=== PATIENT | female | born 1940 | race Caucasian/White ===

== ENCOUNTER 2017-04-13 13:52 | Emergency (ER) | payer OTHER, MEDICARE ==
--- NOTE | 2017-04-13 14:19 | PDOC ---
History of Present Illness - General History Source: Patient Exam Limitations: No Limitations - History of Present Illness Initial Comments: 04/13/17 15:24 The patient is a 76 year old female with past medical history of Parkinsons Disease and chronic lower extremity edema who arrives to the ED s/p mechanical fall earlier today. As per patient, she was washing her floors when she twisted her body and fell onto her right arm. She denies any dizziness, chest pain, or lightheadedness preceding the incident. She denies hitting her head or any loss of consciousness. The patient currently complains of right shoulder pain that is 6/10 in severity, constant, and radiates to her right humerus with associated weakness. She reports pain upon movement of her right extremity. She denies any loss of sensation/numbness. She denies any recent illness, fever, chills, nausea, vomiting, diarrhea, cough, SOB, or urinary symptoms. <Sally Eagle - Last Filed: 04/13/17 15:24> <Anita Regan - Last Filed: 04/13/17 18:16> <Jose Puckett - Last Filed: 04/13/17 18:27> - General Chief Complaint: Pain Stated Complaint: RIGHT SHOULDER PAIN Time Seen by Provider: 04/13/17 14:16 Past History <Sally Eagle - Last Filed: 04/13/17 15:24> <Anita Regan - Last Filed: 04/13/17 18:16> <Jose Puckett - Last Filed: 04/13/17 18:27> - Past Medical History Allergies/Adverse Reactions: Allergies Allergy/AdvReac Type Severity Reaction Status Date / Time No Known Allergies Allergy Verified 04/13/17 13:53 Home Medications: Ambulatory Orders Aspirin [Aspir 81] 81 mg PO DAILY 12/09/12 Calcium Carbonate [Tums Ultra] 400 mg PO ASDIR 12/09/12 Cholecalciferol (Vitamin D3) [Vitamin D3] 1,000 unit PO 2 CAPS DAILY capsule Ropinirole HCl [Requip Xl] 6 mg PO DAILY tablet 07/09/15 [id number] [Stalevo 100 -] 1 each PO TID tablet 08/06/15 Furosemide [Lasix] 20 mg PO DAILY 04/13/17 Review of Systems - Review of Systems Able to Perform ROS?: Yes Comments:: 04/13/17 15:24 A complete review of 10 out of 10 review of systems is taken and is negative apart from what is previously mentioned below and in the HPI. All Other Systems: Reviewed and Negative <Sally Eagle - Last Filed: 04/13/17 15:24> *Physical Exam - Vital Signs Last Vital Signs Temp Pulse Resp BP Pulse Ox 97.3 F L 87 16 154/78 100 04/13/17 13:53 04/13/17 13:53 04/13/17 13:53 04/13/17 13:53 04/13/17 13:53 - Physical Exam Comments: 04/13/17 15:24 Vitals: Triage Vital signs reviewed General Appearance: no acute distress, well nourished well developed, Head: Atraumatic, normocephalic Neck: Supple;No Nuchal rigidity Cardiac: Regular rate and rhythm, no murmurs, no rubs, no gallops, Lungs: Clear to auscultation bilateral, good air movement bilaterally, Abdomen: Soft, nondistended, normal bowel sounds, nontender to palpation Extremities: Full range of motion to all extremities, no cyanosis, clubbing, or edema Skin: Warm and dry, no rashes or lesions, no petechiae Neuro: AOX3; Cranial Nerves 2-12 grossly intact, Strength intact to all extremities, Sensation intact to all extremities Psych: normal mood, normal affect <Sally Eagle - Last Filed: 04/13/17 15:24> - Vital Signs Last Vital Signs Temp Pulse Resp BP Pulse Ox 97.3 F L 87 16 154/78 100 04/13/17 13:53 04/13/17 13:53 04/13/17 13:53 04/13/17 13:53 04/13/17 13:53 <Anita Regan - Last Filed: 04/13/17 18:16> ED Treatment Course - Medications Given in the ED: ED Medications Discontinued Medications Generic Name Dose Route Start Last Admin Trade Name Freq PRN Reason Stop Dose Admin Ibuprofen 600 mg 04/13/17 14:51 04/13/17 15:06 Motrin - PO 04/13/17 14:52 600 mg ONCE ONE Administration <Sally Eagle - Last Filed: 04/13/17 15:24> - Medications Given in the ED: ED Medications Discontinued Medications Generic Name Dose Route Start Last Admin Trade Name Louie PRN Reason Stop Dose Admin Ibuprofen 600 mg 04/13/17 14:51 04/13/17 15:06 Motrin - PO 04/13/17 14:52 600 mg ONCE ONE Administration <Anita Regan - Last Filed: 04/13/17 18:16> Medical Decision Making - Medical Decision Making 04/13/17 18:16 Exam: Right shoulder X-Ray Right Shoulder 2 views S/p fall There is no radiographic evidence of fracture. No dislocation is seen. There is mild degenerative bony spurring along the greater tuberosity of the humeral head. Minimal degenerative hypertropic change is noted of the acromioclavical joint. Impression: No fracture is identified. Reported by: Turner Sommers MD Documentation prepared by Anita Regan, acting as nurses medical assistants phlebotomists for Jose Puckett MD. <Anita Regan - Last Filed: 04/13/17 18:16> - Medical Decision Making No fracture no dislocation noted on x-ray patient provided with orthopedic follow-up Findings, the need for follow-up and strict return instructions discussed with patient and family. <Jose Puckett - Last Filed: 04/13/17 18:27> *DC/Admit/Observation/Transfer - Attestations Scribe Attestion: 04/13/17 15:26 Documentation prepared by Sally Eagle, acting as nurses medical assistants phlebotomists for Jose Puckett MD. <Sally Eagle - Last Filed: 04/13/17 15:24> <Anita Regan - Last Filed: 04/13/17 18:16> - Discharge Dispostion Admit: No <Jose Puckett - Last Filed: 04/13/17 18:27> Diagnosis at time of Disposition: Shoulder sprain Qualifiers: Encounter type: initial encounter Shoulder sprain type: unspecified sprain Laterality: right Qualified Code(s): S43.401A - Unspecified sprain of right shoulder joint, initial encounter - Discharge Dispostion Condition at time of disposition: Stable - Referrals Referrals: Terrence Lauren MD [Staff Physician] - Lincoln You MD [Staff Physician] - - Patient Instructions Printed Discharge Instructions: How to Use a Sling, Shoulder Sprain Additional Instructions: Alternate Tylenol Motrin as directed on package as needed for pain. Ice shoulder 20 minutes on 20 minutes off. Okay to use a sling for comfort but you must removed the string 4-5 times a day and perform range of motion exercises as directed here in the emergency department. Follow-up this week with or Dr. Lauren orthopedics. Return to the emergency department for any severe worsening symptoms or for any concerns.
[2017-04-13 14:25] VITALS: BP 154/78; PULSE 87; TEMP 97.3; BMI 28.5
[2017-04-13] MEDS ORDERED: IBUPROFEN 600 MG TABLET (FP) PO ONE ×2 (14:51→15:02)
== END 2017-04-13 18:42 | disposition home or self-care (01) ==
LOC: FER 13:52
DX: S43.401A Unspecified sprain of right shoulder joint, initial encounter (principal); W01.0XXA Fall on same level from slipping, tripping and stumbling without subsequent striking against object, initial encounter; Y93.E5 Activity, floor mopping and cleaning; Y92.009 Unspecified place in unspecified non-institutional (private) residence as the place of occurrence of the external cause; G20 Parkinson's disease; R60.9 Edema, unspecified; Z79.82 Long term (current) use of aspirin
CPT/HCPCS: 71046-TC-FY; 73030-TC-RT-FY; 99282-25

== ENCOUNTER 2018-10-22 06:12 | Emergency (ER) | payer OTHER, MEDICARE ==
[2018-10-22 06:32] VITALS: BP 154/80; PULSE 86; TEMP 97.4; BMI 28.4
[2018-10-22] MEDS ORDERED: ACETAMINOPHEN 500 MG TABLET (FP) PO ONE (06:35)
[2018-10-22] MEDS ORDERED: ACETAMINOPHEN 500 MG TABLET (FP) ONE (06:36)
--- NOTE | 2018-10-22 06:37 | PDOC ---
History of Present Illness - General Chief Complaint: Pain, Acute Stated Complaint: RT FLANK PAIN - History of Present Illness Initial Comments: 10/22/18 07:09 non traumatic LBP Timing/Duration: 24 hours Severity: moderate Modifying Factors: improves with: immobilization, movement, rest Associated Symptoms: denies: fever/chills, nausea/vomiting, rash Past History - Past Medical History Allergies/Adverse Reactions: Allergies Allergy/AdvReac Type Severity Reaction Status Date / Time No Known Allergies Allergy Verified 04/13/17 13:53 Home Medications: Ambulatory Orders Aspirin [Aspir 81] 81 mg PO DAILY 12/09/12 Calcium Carbonate [Tums Ultra] 400 mg PO ASDIR 12/09/12 Cholecalciferol (Vitamin D3) [Vitamin D3] 1,000 unit PO 2 CAPS DAILY capsule Ropinirole HCl [Requip Xl] 6 mg PO DAILY tablet 07/09/15 [id number] [Stalevo 100 -] 1 each PO QID tablet 08/06/15 Furosemide [Lasix] 20 mg PO DAILY 04/13/17 Amantadine HCl [Amantadine] 100 mg PO DAILY 10/22/18 COPD: No Comment:: 10/22/18 07:10 parkinsons disease - Surgical History Abdominal Surgery: Yes - Suicide/Smoking/Psychosocial Hx Smoking History: Never smoked Hx Alcohol Use: No Drug/Substance Use Hx: No Substance Use Type: None Review of Systems - Review of Systems All Other Systems: Reviewed and Negative *Physical Exam - Physical Exam General Appearance: Yes: Nourished, Appropriately Dressed HEENT: positive: Normal Voice Neck: negative: Lymphadenopathy (R), Lymphadenopathy (L) Respiratory/Chest: positive: Lungs Clear Cardiovascular: positive: Regular Rhythm Gastrointestinal/Abdominal: positive: Normal Bowel Sounds. negative: Tender Musculoskeletal: positive: Normal Inspection, Decreased Range of Motion, Muscle Spasm Extremity: positive: Normal Capillary Refill Integumentary: positive: Normal Color Neurologic: positive: Other (stigmata of parkinsons disease) Medical Decision Making - Medical Decision Making 10/22/18 07:11 msk LBP analgesia *DC/Admit/Observation/Transfer Diagnosis at time of Disposition: Low back pain Qualifiers: Chronicity: acute Back pain laterality: right Sciatica presence: without sciatica Qualified Code(s): M54.5 - Low back pain - Discharge Dispostion Disposition: HOME Condition at time of disposition: Stable - Referrals Referrals: Vipul Dowd MD [Primary Care Provider] - - Patient Instructions Printed Discharge Instructions: DI for Low Back Pain - Post Discharge Activity
== END 2018-10-22 07:24 | disposition home or self-care (01) ==
LOC: FER 06:12
DX: M54.5 Low back pain (principal); G20 Parkinson's disease
CPT/HCPCS: 99281-25

== ENCOUNTER 2019-08-19 17:25 | Inpatient (IN) | payer OTHER, MEDICARE ==
--- NOTE | 2019-08-19 17:49 | PDOC ---
Documentation entered by Criss Charles SCRIBE, acting as scribe for Kimberly Stein MD. Kimberly Stein MD: This documentation has been prepared by the yueibeMelvin Lincy, SCRIBE, under my direction and personally reviewed by me in its entirety. I confirm that the documentation accurately reflects all work, treatment, procedures, and medical decision making performed by me. History of Present Illness - General Chief Complaint: Wound Stated Complaint: LEG REDNESS History Source: Patient Exam Limitations: No Limitations - History of Present Illness Initial Comments: 08/19/19 17:51 The patient is a 78-year-old female with a past medical history significant for parkinson's disease who presents to the emergency department with right leg redness and swelling. The patient reports chronic right leg wound s/p a fall in May around [facility], when a chair fell onto the leg injuring the right leg. The patient reports following up with Dr. Dowd and recent 10-day oral antibiotics use about a month ago. The patient presents today with worsening redness and swelling to the right leg, states the redness and swelling "wasn't this bad yesterday." Denies fever, chills, cough, shortness of breath, chest pain, abdominal pain, urinary complaints. Denies a history of DM. The patient reports having a lower extremity ultrasound on 07/28, which was negative for DVT. Allergies: NKA PCP: Dr. Dowd. Past History - Medical History Allergies/Adverse Reactions: Allergies Allergy/AdvReac Type Severity Reaction Status Date / Time No Known Allergies Allergy Verified 08/19/19 17:25 Home Medications: Ambulatory Orders Aspirin [Aspir 81] 81 mg PO DAILY 12/09/12 Calcium Carbonate [Tums Ultra] 400 mg PO HS 12/09/12 Ropinirole HCl [Requip Xl] 6 mg PO HS tablet 07/09/15 [id number] [Stalevo 100 -] 1 each PO QID tablet 08/06/15 Furosemide [Lasix] 20 mg PO DAILY 04/13/17 Amantadine HCl [Amantadine] 100 mg PO DAILY 10/22/18 COPD: No - Surgical History Abdominal Surgery: Yes - Psycho-Social/Smoking History Smoking History: Never smoked Review of Systems - Review of Systems Able to Perform ROS?: Yes Comments:: 08/19/19 17:55 GENERAL/CONSTITUTIONAL: No fever or chills. No weakness. HEAD, EYES, EARS, NOSE AND THROAT: No change in vision. No ear pain or discharge. No sore throat. CARDIOVASCULAR: No chest pain or shortness of breath. RESPIRATORY: No cough, wheezing, or hemoptysis. GASTROINTESTINAL: No nausea, vomiting, diarrhea or constipation. GENITOURINARY: No dysuria, frequency, or change in urination. MUSCULOSKELETAL: No joint or muscle swelling or pain. No neck or back pain. SKIN: +right leg redness and swelling. No rash NEUROLOGIC: No headache, vertigo, loss of consciousness, or change in strength/sensation. ENDOCRINE: No increased thirst. No abnormal weight change. Denies history of DM. HEMATOLOGIC/LYMPHATIC: No anemia, easy bleeding, or history of blood clots. ALLERGIC/IMMUNOLOGIC: No hives or skin allergy. *Physical Exam - Physical Exam 08/19/19 17:47 Awake alert no acute distress lungs are clear bilaterally heart is regular with any murmurs rubs or gallops abdomen is soft and nontender extremities are warm well perfused the right lower extremity is noted for severe edema and erythema from the foot to the level of the knee there is an anterior central li wound approximately 1 cm x 1 cm which is weeping serous fluid there is warmth edema is more noted compared to the left lower extremity neurologically patient is awake alert and oriented x3 Heart Score/ECG Review #1 General ECG Interpretation: Sinus Rhythm, Normal Rate (86), Normal Intervals, No acute ischemic changes ED Treatment Course - LABORATORY CBC & Chemistry Diagram: 08/19/19 17:49 08/19/19 17:49 Medical Decision Making - Medical Decision Making 08/19/19 17:46 78 yo F ho htn chronic leg wound since 05/2019 here with right leg swelling redness and draining from her wound. she was on abx for this recently. no f/ does have chills. no n/v no cough. no sob. has had us rlext neg for dvt. 07/29/19 plan labs ivf abx. due to recent abx use and rapidity of evolution of swelling and redness, will admit for iv abx. Discharge - Discharge Information Problems reviewed: Yes Clinical Impression/Diagnosis: Cellulitis, Leg wound, right Condition: Stable - Admission Yes - Follow up/Referral - Patient Discharge Instructions - Post Discharge Activity
[2019-08-19 18:20] LABS: LYMPH % 12.6 % (8-40); MCH 33.4 pg (25.7-33.7); MEAN CELL VOLUME 92.8 fl (80-96); MEAN PLT VOLUME 8.3 fl (7.5-11.1); MONO % 9.1 % (3.8-10.2); NEUT % 77.6 % (42.8-82.8); PLATELET COUNT 132 K/MM3 (134-434); RBC 3.37 M/mm3 (3.60-5.2); RDW 13.5 % (11.6-15.6); WHITE BLOOD COUNT 6.6 K/mm3 (4.0-10.8)
[2019-08-19 18:22] LABS: BASO % 0.4 % (0-2.0); EOS % 0.3 % (0-4.5); HEMATOCRIT 31.2 % (32.4-45.2); HEMOGLOBIN 11.3 GM/dl (10.7-15.3)
[2019-08-19] MEDS ORDERED: VANCOMYCIN 1 GM in D5W (PRE-DOCKED) 1,000 MG/250 ML IVPB ONE (18:24)
[2019-08-19] MEDS ORDERED: PIPERACILLIN/TAZOB 3.375 GM 3.375 GM in DEXTROSE 5%-WATER - 50 ML IVPB ONE (18:24)
[2019-08-19] MEDS ORDERED: VANCOMYCIN 1,000 MG VIAL (RESTRICTED TO ID ONLY) ONE (18:25)
[2019-08-19] MEDS ORDERED: PIPERACILLIN/TAZOBACTAM 3.375 GM VIAL IVPB ONE (18:26)
[2019-08-19 18:28] LABS: ALBUMIN 3.6 g/dl (3.4-5.0); CALCIUM 8.5 mg/dl (8.5-10); CREATININE 0.9 mg/dl (0.55-1.3); POTASSIUM 3.5 mmol/L (3.5-5.1); TOT PROT 5.7 g/dl (6.4-8.2)
[2019-08-19] MEDS ORDERED: POTASSIUM CHLORIDE ORAL LIQUID 20 MEQ/15 ML PO ONE (20:15)
[2019-08-19] MEDS: HEPARIN NA (PORCINE) 5,000 UNITS/ML 1ML VIAL SQ SCH (21:48)
[2019-08-19] MEDS ORDERED: ROPINIROLE HCL 6 MG PO SCH (22:00)
--- NOTE | 2019-08-19 23:58 | HP ---
CHIEF COMPLAINT: leg redness/swelling PCP: Fader HISTORY OF PRESENT ILLNESS: This is a 78 year old female with PMH Parkinson's disease who presented to the ED with erythema, warmth and swelling to RLE x 1 day. Pt hit lower leg and sustained a cut mid May which had poor healing and ultimately required a cour se of Augmentin x 10 days in June. The wound had healed but her family noted that the leg was red this morning with and open draining area. Pt denies any other issues presently. She reports chronic edema to her right leg. She had an ultrasound on 07/28 which was negative for DVT. 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 T10-L5 spine surgery, fusion tonsillectomy appendectomy left tennis elbow surgery wrist ganglion cyst removal Social History: Smoking: pt denies Alcohol: pt denies Drugs: pt denies Allergies No Known Allergies Allergy (Verified 08/19/19 17:25) HOME MEDICATIONS: Medication Instructions Recorded Aspirin [Aspir 81] 81 mg PO DAILY 12/09/12 Calcium Carbonate [Tums Ultra] 400 mg PO HS 12/09/12 Ropinirole HCl [Requip Xl] 6 mg PO HS tablet 07/09/15 [id number] 1 each PO QID tablet 08/06/15 [Stalevo 100 -] Furosemide [Lasix] 20 mg PO DAILY 04/13/17 Amantadine HCl [Amantadine] 100 mg PO DAILY 10/22/18 REVIEW OF SYSTEMS CONSTITUTIONAL: Absent: fever, chills, diaphoresis, generalized weakness, malaise, loss of appetite, weight change HEENT: Absent: rhinorrhea, nasal congestion, throat pain, throat swelling, difficulty swallowing, mouth swelling, ear pain, eye pain, visual changes CARDIOVASCULAR: Absent: chest pain, syncope, palpitations, irregular heart rate, lightheadedness, peripheral edema RESPIRATORY: Absent: cough, shortness of breath, dyspnea with exertion, orthopnea, wheezing, stridor, hemoptysis GASTROINTESTINAL: Absent: abdominal pain, abdominal distension, nausea, vomiting, diarrhea, constipation, melena, hematochezia GENITOURINARY: Absent: dysuria, frequency, urgency, hesitancy, hematuria, flank pain, genital pain MUSCULOSKELETAL: Present: right lower leg pain, erythema Absent: myalgia, arthralgia, joint swelling, back pain, neck pain SKIN: Absent: rash, itching, pallor HEMATOLOGIC/IMMUNOLOGIC: Absent: easy bleeding, easy bruising, lymphadenopathy, frequent infections ENDOCRINE: Absent: unexplained weight gain, unexplained weight loss, heat intolerance, cold intolerance NEUROLOGIC: Absent: headache, focal weakness or paresthesias, dizziness, unsteady gait, seizure, mental status changes, bladder or bowel incontinence PSYCHIATRIC: Absent: anxiety, depression, suicidal or homicidal ideation, hallucinations. PHYSICAL EXAMINATION Vital Signs - 24 hr 08/19/19 08/19/19 08/19/19 17:25 19:45 20:15 Temperature 98.4 F 100.2 F H 100.2 F H Pulse Rate 90 79 79 Respiratory 19 18 18 Rate Blood Pressure 134/79 137/48 L 137/48 L O2 Sat by Pulse 98 98 98 Oximetry (%) GENERAL: Awake, alert, and fully oriented, in no acute distress. HEAD: Normal with no signs of trauma. EYES: Pupils equal, round and reactive to light, extraocular movements intact, sclera anicteric, conjunctiva clear. No lid lag. EARS, NOSE, THROAT: Ears normal, nares patent, oropharynx clear without exudates. Moist mucous membranes. NECK: Normal range of motion, supple without lymphadenopathy, JVD, or masses. LUNGS: Breath sounds equal, clear to auscultation bilaterally. No wheezes, and no crackles. No accessory muscle use. HEART: Regular rate and rhythm, normal S1 and S2 without murmur, rub or gallop. ABDOMEN: Soft, nontender, not distended, normoactive bowel sounds, no guarding, no rebound, no masses. No hepatomegaly or splenomegaly. MUSCULOSKELETAL: Normal range of motion at all joints. No bony deformities or tenderness. No CVA tenderness. UPPER EXTREMITIES: 2+ pulses, warm, well-perfused. No cyanosis. No clubbing. No peripheral edema. LOWER EXTREMITIES: 2+ pulses, warm, well-perfused. No calf tenderness. tr peripheral edema left, 1+ right. + erythema to right lower leg, + anterior li with small opening 1.5 x 2mm, possible fluid collection/abscess surrounding, + induration, + draining serous NEUROLOGICAL: Cranial nerves II-XII intact. Normal speech. PSYCHIATRIC: Cooperative. Good eye contact. Appropriate mood and affect. SKIN: Warm, dry, normal turgor, no rashes or lesions noted, normal capillary refill. Laboratory Results - last 24 hr 08/19/19 08/19/19 17:49 17:49 WBC 6.6 RBC 3.37 L Hgb 11.3 Hct 31.2 L MCV 92.8 MCH 33.4 MCHC 36.0 RDW 13.5 Plt Count 132 L MPV 8.3 Absolute Neuts (auto) 5.2 Neutrophils % 77.6 Lymphocytes % 12.6 Monocytes % 9.1 Eosinophils % 0.3 Basophils % 0.4 Sodium 137 Potassium 3.5 Chloride 105 Carbon Dioxide 26 Anion Gap 6 L BUN 25.0 H Creatinine 0.9 Est GFR (CKD-EPI)AfAm 70.98 Est GFR (CKD-EPI)NonAf 61.24 Random Glucose 145 H Calcium 8.5 Total Bilirubin 1.0 AST 16 ALT 6 L Alkaline Phosphatase 49 Total Protein 5.7 L Albumin 3.6 ECG: Normal sinus rhythm vent rate 86, QTC [address]/T wave changes CXR Impression: Cardiomegaly and mild bilateral perihilar increased lung markings without evidence of focal infiltrates ASSESSMENT/PLAN: 78yF with PMH Parkinson's disease presented with leg erythema, swelling and drainage admitted with cellulitis. Cellulits likely in s/o venous stasis - clindamycin 600 q6h - follow WBC trend/fever curve - cont home lasix Parkinson's disease - cont home meds PPX - heparin 5000u SC BID - no indication for GI PPX FEN - po fluids as tolerated - BMP in am, k repleted - regular diet as tolerated Dispo: This patient currently requires inpatient management of her emergent condition. Family Medical History Family Hx Cardiac Disorders: Mother ( age 56, unknown cardiac problem), Father, Sister ( age 39, unknown cardiac problem), Brother (cardiac transplant in s/o cardiomyopathy, unknown etiology) Family Hx Nuerologic Problems: Mother (cva), Father (cva) Other Family History: nephew (brother's son) s/p heart transplant. nephew (sister's son) while awaiting heart transplant Visit type - Emergency Visit Emergency Visit: Yes ED Registration Date: 08/19/19 Care time: The patient presented to the Emergency Department on the above date and was hospitalized for further evaluation of their emergent condition. - New Patient This patient is new to me today: Yes Date on this admission: 08/19/19 - Critical Care Critical Care patient: No
[2019-08-20] MEDS: CLINDAMYCIN 600MG PREMIX IVPB 600 MG/50 ML BAG IVPB SCH ×4 (02:07→20:44)
--- NOTE | 2019-08-20 09:02 | PN ---
Physical Exam: SUBJECTIVE: Patient seen and examined at bedside, reports mild RLE discomfort, denies fever, chills, cp, sob, cough, palpitations, abdominal pain, N/V/D or urinary symptoms. OBJECTIVE: Vital Signs Period Temp Pulse Resp BP Sys/Dodson Pulse Ox Last 24 Hr 98.4 F-100.2 F 74-90 18-19 121-137/48-79 96-98 GENERAL: The patient is awake, alert, and fully oriented, in no acute distress. HEAD: Normal with no signs of trauma. EYES: PERRL, extraocular movements intact, sclera anicteric, conjunctiva clear. No ptosis. ENT: Ears normal, nares patent, oropharynx clear without exudates, moist mucous membranes. NECK: Trachea midline, full range of motion, supple. LUNGS: Breath sounds equal, clear to auscultation bilaterally, no wheezes, no crackles, no accessory muscle use. HEART: Regular rate and rhythm, S1, S2 without murmur, rub or gallop. ABDOMEN: Soft, nontender, nondistended, normoactive bowel sounds, no guarding, no rebound, no hepatosplenomegaly, no masses. EXTREMITIES: 2+ pulses, warm, well-perfused, RLE with redness, edema,mild tenderness, small wound at the li area draining sero-sanguineous fluid NEUROLOGICAL: Cranial nerves II through XII grossly intact. Normal speech, gait not observed. PSYCH: Normal mood, normal affect. SKIN: Warm, dry, normal turgor, no rashes or lesions noted Laboratory Results - last 24 hr 08/19/19 08/19/19 17:49 17:49 WBC 6.6 RBC 3.37 L Hgb 11.3 Hct 31.2 L MCV 92.8 MCH 33.4 MCHC 36.0 RDW 13.5 Plt Count 132 L MPV 8.3 Absolute Neuts (auto) 5.2 Neutrophils % 77.6 Lymphocytes % 12.6 Monocytes % 9.1 Eosinophils % 0.3 Basophils % 0.4 Sodium 137 Potassium 3.5 Chloride 105 Carbon Dioxide 26 Anion Gap 6 L BUN 25.0 H Creatinine 0.9 Est GFR (CKD-EPI)AfAm 70.98 Est GFR (CKD-EPI)NonAf 61.24 Random Glucose 145 H Calcium 8.5 Total Bilirubin 1.0 AST 16 ALT 6 L Alkaline Phosphatase 49 Total Protein 5.7 L Albumin 3.6 Active Medications Generic Name Dose Route Start Last Admin Trade Name Freq PRN Reason Stop Dose Admin Amantadine HCl 100 mg 08/20/19 10:00 Symmetrel - PO DAILY GEOVANI Aspirin 81 mg 08/20/19 10:00 Ecotrin - PO DAILY GEOVANI Calcium Carbonate 650 mg 08/20/19 22:00 Calcium Carbonate - PO HS GEOVANI Carbidopa/Levodopa/Entacapone 1 tab 08/20/19 08:00 Stalevo 100 - PO 0800,1200,1600,2000 GEOVANI Furosemide 20 mg 08/20/19 10:00 Lasix - PO DAILY GEOVANI Heparin Sodium (Porcine) 5,000 unit 08/19/19 22:00 08/19/19 21:48 Heparin - SQ 5,000 unit BID GEOVANI Administration Clindamycin Phosphate 600 mg in 50 mls @ 100 mls/hr 08/20/19 03:00 08/20/19 02:07 Cleocin 600 Mg Premix Ivpb - IVPB 100 mls/hr Q6H-IV GEOVANI Administration Protocol Non-Formulary Medication 6 mg 08/20/19 20:00 Ropinirole Hcl [Requip Xl] PO 1999 GEOVANI ECG: Normal sinus rhythm,no acute ST/T wave changes CXR : Cardiomegaly and mild bilateral perihilar increased lung markings without evidence of focal infiltrates ASSESSMENT/PLAN: 78 year old female with PMH Parkinson's disease, chronic RLE edema,s/p fall 2 months ago with RLE injury, s/p tx with Augmentin,who presents to ER with leg erythema, swelling and drainage,which reportedly started yesterday,admitted with RLE cellulitis. POMD Dr. Dowd Neurology Dr. Almanzar * RLE cellulitis - US ordered to r/o DVT -will cont on clindamycin 600 q6h - will f/u on BC and wound culture reports - max fever 100.2,afebrile now with no leukocytosis - ID Dr. Sánchez consulted - PT eval - to keep RLE elevated - started on probiotics *Parkinson's disease - cont home meds * Chronic RLE edema - will cont on home dose Lasix * Low phosphorus -1.8, replaced * Anemia, likely dilutional - asymptomatic, no melena or rectal bleeding - will check stool OB - Fe studies DVT PPX- Heparin 5000u SC BID * Covid - pending F/E/N: Regular diet, replace electrolytes as tolerated. Addendum: See by ID Dr. Sánchez, rec Praveen and MRI RLE ordered to r/o osteo. Visit type - Emergency Visit Emergency Visit: Yes ED Registration Date: 08/19/19 Care time: The patient presented to the Emergency Department on the above date and was hospitalized for further evaluation of their emergent condition. - New Patient This patient is new to me today: Yes Date on this admission: 08/20/19 - Critical Care Critical Care patient: No
[2019-08-20 09:16] LABS: CALCIUM 8.1 mg/dl (8.5-10); CREATININE 0.7 mg/dl (0.55-1.3); MAGNESIUM 1.9 mg/dL (1.8-2.4); PHOSPHOROUS 1.8 mg/dl (2.5-4.9); POTASSIUM 3.7 mmol/L (3.5-5.1)
[2019-08-20 09:16] LABS: BASO % 0.6 % (0-2.0); EOS % 0.2 % (0-4.5); HEMATOCRIT 29.5 % (32.4-45.2); HEMOGLOBIN 9.9 GM/dl (10.7-15.3); MCH 31.4 pg (25.7-33.7); MCHC 33.8 g/dl (32.0-36.0); MEAN CELL VOLUME 92.9 fl (80-96); MEAN PLT VOLUME 8.8 fl (7.5-11.1); MONO % 13.5 % (3.8-10.2); NEUT % 70.7 % (42.8-82.8); PLATELET COUNT 120 K/MM3 (134-434); RBC 3.17 M/mm3 (3.60-5.2); RDW 13.4 % (11.6-15.6); WHITE BLOOD COUNT 5.1 K/mm3 (4.0-10.8)
[2019-08-20] MEDS ORDERED: PT OWN MED DRAWER 7, Y5N ONE (09:36)
[2019-08-20] MEDS: CARBIDOP 25MG/LEVODOPA 100MG/ENTACAPONE 200MG TABLET PO SCH ×4 (09:48→20:44)
[2019-08-20] MEDS: LACTOBACILLUS ACIDOPHILUS 1 TABLET PO SCH (09:49)
[2019-08-20] MEDS: ASPIRIN COATED 81 MG TABLET.EC PO SCH (09:49)
[2019-08-20] MEDS: POTASSIUM CHLORIDE TABS 10 MEQ TABLET.ER (FP) PO SCH (09:49)
[2019-08-20] MEDS: FUROSEMIDE 20 MG TABLET (FP) PO SCH (09:50)
[2019-08-20] MEDS: AMANTADINE HCL 100 MG TABLET PO SCH (09:51)
[2019-08-20] MEDS ORDERED: NAPH,MB-DB/K PH,MBDB POWDER PACKET PO ONE (09:53)
[2019-08-20] MEDS ORDERED: ACETAMINOPHEN 325 MG TABLET (FP) PO PRN (10:04)
[2019-08-20] MEDS: HEPARIN NA (PORCINE) 5,000 UNITS/ML 1ML VIAL SQ SCH ×2 (10:16→22:26)
--- NOTE | 2019-08-20 12:24 | CON.ID ---
Consult Consult Specialty:: infectious diseases Referred by:: lilliana Reason for Consultation:: cellulitis of the rt leg with drainage noted - History of Present Illness Chief Complaint: rt leg welling .erythema,pain and redness History of Present Illness: 78 year old female with PMH Parkinson's disease who presented to the ED with erythema, warmth and swelling to E.paient was evaluated and admitted and was started on iv clinda . Pt hit lower leg and sustained a cut mid May which had poor healing and ultimately required a course of Augmentin x 10 days in June. The wound had healed but her family noted that the leg was red this morning with and open draining area. Pt denies any other issues presently. She reports chronic edema to her right leg. She had an ultrasound on 07/28 which was negative for DVT. currently the leg is red and erythema with drainage - History Source History Provided By: Patient Limitations to Obtaining History: No Limitations - Alcohol/Substance Use Hx Alcohol Use: No - Smoking History Smoking history: Never smoked Home Medications - Allergies Allergies/Adverse Reactions: Allergies Allergy/AdvReac Type Severity Reaction Status Date / Time No Known Allergies Allergy Verified 08/19/19 17:25 - Home Medications Home Medications: Ambulatory Orders Aspirin [Aspir 81] 81 mg PO DAILY 12/09/12 Calcium Carbonate [Tums Ultra] 400 mg PO HS 12/09/12 Ropinirole HCl [Requip Xl] 6 mg PO HS tablet 07/09/15 [id number] [Stalevo 100 -] 1 each PO QID tablet 08/06/15 Furosemide [Lasix] 20 mg PO DAILY 04/13/17 Amantadine HCl [Amantadine] 100 mg PO DAILY 10/22/18 Review of Systems - Review of Systems Constitutional: reports: No Symptoms Eyes: reports: No Symptoms HENT: reports: No Symptoms Neck: reports: No Symptoms Cardiovascular: reports: No Symptoms Respiratory: reports: No Symptoms Gastrointestinal: reports: No Symptoms Genitourinary: reports: No Symptoms Musculoskeletal: reports: Extremity Pain, Other Integumentary: reports: Erythema, Wound, Other (rainage) Neurological: reports: No Symptoms Endocrine: reports: No Symptoms Hematology/Lymphatic: reports: No Symptoms Psychiatric: reports: No Symptoms Physical Exam Vital Signs: Vital Signs Temperature 99.6 F 08/20/19 04:00 Pulse Rate 74 08/20/19 04:00 Respiratory Rate 18 08/20/19 04:00 Blood Pressure 121/48 L 08/20/19 04:00 O2 Sat by Pulse Oximetry (%) 96 08/20/19 08:41 Constitutional: Yes: Calm, Mild Distress Eyes: Yes: Conjunctiva Clear, EOM Intact HENT: Yes: Atraumatic, Normocephalic Neck: Yes: Supple, Trachea Midline Cardiovascular: Yes: Regular Rate and Rhythm Respiratory: Yes: Regular, CTA Bilaterally Gastrointestinal: Yes: Normal Bowel Sounds, Soft Musculoskeletal: Yes: Other Extremities: Yes: Erythema, Other (redness drainage and erythma present) Integumentary: Yes: Erythema Wound/Incision: Yes: Dressing Removed, Draining, Reddened, Other (wound) Neurological: Yes: Alert, Oriented Psychiatric: Yes: Alert, Oriented Labs: CBC, BMP 08/20/19 06:10 08/20/19 06:30 Imaging - Results Chest X-ray: Report Reviewed, Image Reviewed Assessment/Plan this patient with multiple medical issues coming with cellulitis of the rt leg with wound and drainage i am worried if there is a pathology going on and how deep is the wound plan await for all cx reports will add zosyn also pls get a mri on the case rest as per the team
[2019-08-20] MEDS ORDERED: DEXTROSE 5%-WATER - 50 ML IVPB ONE ×2 (13:23→16:35)
[2019-08-20] MEDS ORDERED: PIPERACILLIN/TAZOBACTAM 3.375 GM VIAL IVPB ONE ×2 (13:23→16:35)
[2019-08-20] MEDS: PIPERACILLIN/TAZOB 3.375 GM 3.375 GM in DEXTROSE 5%-WATER - 50 ML IVPB SCH ×2 (13:30→18:55)
--- NOTE | 2019-08-20 14:43 | EKG ---
Test Reason : Blood Pressure : / mmHG Vent. Rate : 086 BPM Atrial Rate : 086 BPM P-R Int : 124 ms QRS Dur : 082 ms QT Int : 302 ms P-R-T Axes : 017 -25 004 degrees QTc Int : 361 ms POOR DATA QUALITY, INTERPRETATION MAY BE ADVERSELY AFFECTED NORMAL SINUS RHYTHM POSSIBLE ANTERIOR INFARCT (CITED ON OR BEFORE 19-AUG-2019) NONSPECIFIC ST ABNORMALITY ABNORMAL ECG Confirmed by MD FLORENTIN, DARYL ([id number]) on 08/20/2019 2:43:21 PM Referred By: Confirmed By:DARYL LERMA MD
[2019-08-20 16:56] LABS: IRON SERUM 15 ug/dL (50-175); TOTAL IRON BINDING CAPACITY 301 ug/dL (250-450)
[2019-08-20] MEDS: ROPINIROLE HCL 6 MG PO SCH (20:43)
[2019-08-20] MEDS: CALCIUM CARBONATE 650 MG TABLET PO SCH (22:26)
[2019-08-21] MEDS ORDERED: PIPERACILLIN/TAZOBACTAM 3.375 GM VIAL IVPB ONE ×3 (01:27→17:28)
[2019-08-21] MEDS ORDERED: DEXTROSE 5%-WATER - 50 ML IVPB ONE ×3 (01:27→17:28)
[2019-08-21] MEDS: PIPERACILLIN/TAZOB 3.375 GM 3.375 GM in DEXTROSE 5%-WATER - 50 ML IVPB SCH ×3 (01:28→18:56)
[2019-08-21] MEDS: CLINDAMYCIN 600MG PREMIX IVPB 600 MG/50 ML BAG IVPB SCH ×4 (02:28→20:37)
[2019-08-21 07:41] LABS: BASO % 0.6 % (0-2.0); EOS % 0.5 % (0-4.5); HEMATOCRIT 31.4 % (32.4-45.2); HEMOGLOBIN 10.9 GM/dl (10.7-15.3); LYMPH % 20.4 % (8-40); MCH 32.6 pg (25.7-33.7); MCHC 34.7 g/dl (32.0-36.0); MEAN CELL VOLUME 93.9 fl (80-96); MEAN PLT VOLUME 8.1 fl (7.5-11.1); MONO % 11.8 % (3.8-10.2); NEUT % 66.7 % (42.8-82.8); PLATELET COUNT 131 K/MM3 (134-434); RBC 3.34 M/mm3 (3.60-5.2); RDW 13.7 % (11.6-15.6); WHITE BLOOD COUNT 5.2 K/mm3 (4.0-10.8)
[2019-08-21 07:48] LABS: CALCIUM 8.2 mg/dl (8.5-10); CREATININE 0.7 mg/dl (0.55-1.3); PHOSPHOROUS 2.2 mg/dl (2.5-4.9)
[2019-08-21] MEDS: CARBIDOP 25MG/LEVODOPA 100MG/ENTACAPONE 200MG TABLET PO SCH ×4 (08:52→20:37)
[2019-08-21] MEDS: AMANTADINE HCL 100 MG TABLET PO SCH (08:59)
[2019-08-21] MEDS: HEPARIN NA (PORCINE) 5,000 UNITS/ML 1ML VIAL SQ SCH ×2 (08:59→21:09)
[2019-08-21] MEDS: ASPIRIN COATED 81 MG TABLET.EC PO SCH (08:59)
[2019-08-21] MEDS: POTASSIUM CHLORIDE TABS 10 MEQ TABLET.ER (FP) PO SCH (08:59)
[2019-08-21] MEDS: FUROSEMIDE 20 MG TABLET (FP) PO SCH (08:59)
[2019-08-21] MEDS: LACTOBACILLUS ACIDOPHILUS 1 TABLET PO SCH (08:59)
--- NOTE | 2019-08-21 15:44 | PN ---
Progress Note, Physician History of Present Illness: stable leg still swollen - Current Medication List Current Medications: Active Medications Acetaminophen (Tylenol -) 650 mg PO Q4H PRN PRN Reason: pain Last Admin: 08/21/19 06:40 Dose: 650 mg Documented by: Amantadine HCl (Symmetrel -) 100 mg PO DAILY [facility] Last Admin: 08/21/19 08:59 Dose: 100 mg Documented by: Aspirin (Ecotrin -) 81 mg PO DAILY [facility] Last Admin: 08/21/19 08:59 Dose: 81 mg Documented by: Calcium Carbonate (Calcium Carbonate -) 650 mg PO HS [facility] Last Admin: 08/20/19 22:26 Dose: Not Given Documented by: Carbidopa/Levodopa/Entacapone (Stalevo 100 -) 1 tab PO 0800,1200,1600,1999 [facility] Last Admin: 08/21/19 12:27 Dose: 1 tab Documented by: Furosemide (Lasix -) 20 mg PO DAILY [facility] Last Admin: 08/21/19 08:59 Dose: 20 mg Documented by: Heparin Sodium (Porcine) (Heparin -) 5,000 unit SQ BID [facility] Last Admin: 08/21/19 08:59 Dose: 5,000 unit Documented by: Clindamycin Phosphate (Cleocin 600 Mg Premix Ivpb -) 600 mg in 50 mls @ 100 mls/hr IVPB Q6H-IV [facility]; Protocol Last Admin: 08/21/19 15:09 Dose: 100 mls/hr Documented by: Piperacillin Sod/Tazobactam (Sod 3.375 gm/ Dextrose) 50 mls @ 100 mls/hr IVPB Q8H-IV [facility]; Protocol Last Admin: 08/21/19 08:59 Dose: 100 mls/hr Documented by: Lactobacillus Acidophilus (Bacid -) 1 tab PO DAILY [facility] Last Admin: 08/21/19 08:59 Dose: 1 tab Documented by: Non-Formulary Medication (Ropinirole Hcl [Requip Xl]) 6 mg PO 1999 [facility] Last Admin: 08/20/19 20:43 Dose: 6 mg Documented by: Potassium Chloride (K-Dur -) 10 meq PO DAILY [facility] Last Admin: 08/21/19 08:59 Dose: 10 meq Documented by: - Objective Vital Signs: Vital Signs Temperature 97.7 F 08/21/19 13:54 Pulse Rate 72 08/21/19 13:54 Respiratory Rate 18 08/21/19 13:54 Blood Pressure 109/49 L 08/21/19 13:54 O2 Sat by Pulse Oximetry (%) 95 08/21/19 09:00 Constitutional: Yes: Calm, Mild Distress Eyes: Yes: Conjunctiva Clear, EOM Intact Cardiovascular: Yes: S1, S2 Respiratory: Yes: Regular, CTA Bilaterally Gastrointestinal: Yes: Normal Bowel Sounds, Soft Musculoskeletal: Yes: WNL Extremities: Yes: Erythema, Other Wound/Incision: Yes: Dressing Dry and Intact Neurological: Yes: Alert, Oriented Psychiatric: Yes: Alert, Oriented Labs: CBC, BMP 08/21/19 06:59 08/21/19 06:59 Assessment/Plan 78 year-old female with a PMH significant for Parkinson's disease and chronic right lower extremity lymphedema, admitted for RLE cellulitis. Right lower extremity cellulitis Chronic right lower extremity lymphedema Parkinson's disease Right eye prosthesis plan ct scan of the leg continue abx might need drainage wound care rest as per the team
[2019-08-21] MEDS: ROPINIROLE HCL 6 MG PO SCH (20:37)
--- NOTE | 2019-08-21 20:58 | PN ---
Physical Exam: SUBJECTIVE: Patient seen and examined oob to chair. Right leg feels tender, some pain. OBJECTIVE: Vital Signs Period Temp Pulse Resp BP Sys/Dodson Pulse Ox Last 24 Hr 97.4 F-98.4 F 67-88 16-18 104-128/47-63 95-98 GENERAL: The patient is awake, alert, and fully oriented, in no acute distress. LUNGS: Breath sounds equal, clear to auscultation bilaterally, no wheezes, no crackles, no accessory muscle use. HEART: Regular rate and rhythm, S1, S2 without murmur, rub or gallop. ABDOMEN: Soft, nontender, nondistended NEUROLOGICAL: Cranial nerves II through XII grossly intact. Normal speech Laboratory Results - last 24 hr 08/21/19 08/21/19 06:59 06:59 WBC 5.2 RBC 3.34 L Hgb 10.9 Hct 31.4 L MCV 93.9 MCH 32.6 MCHC 34.7 RDW 13.7 Plt Count 131 L MPV 8.1 Absolute Neuts (auto) 3.5 Neutrophils % 66.7 Lymphocytes % 20.4 Monocytes % 11.8 H Eosinophils % 0.5 Basophils % 0.6 Sodium 137 Potassium 4.0 Chloride 105 Carbon Dioxide 24 Anion Gap 8 BUN 12.0 Creatinine 0.7 Est GFR (CKD-EPI)AfAm 96.18 Est GFR (CKD-EPI)NonAf 82.99 Random Glucose 93 Calcium 8.2 L Phosphorus 2.2 L Active Medications Generic Name Dose Route Start Last Admin Trade Name Freq PRN Reason Stop Dose Admin Acetaminophen 650 mg 08/20/19 10:04 08/21/19 06:40 Tylenol - PO 650 mg Q4H PRN Administration pain Amantadine HCl 100 mg 08/20/19 10:00 08/21/19 08:59 Symmetrel - PO 100 mg DAILY [facility] Administration Aspirin 81 mg 08/20/19 10:00 08/21/19 08:59 Ecotrin - PO 81 mg DAILY [facility] Administration Calcium Carbonate 650 mg 08/20/19 22:00 08/20/19 22:26 Calcium Carbonate - PO Not Given HS [facility] Carbidopa/Levodopa/Entacapone 1 tab 08/20/19 08:00 08/21/19 16:06 Stalevo 100 - PO 1 tab 0800,1200,1600,2000 [facility] Administration Furosemide 20 mg 08/20/19 10:00 08/21/19 08:59 Lasix - PO 20 mg DAILY [facility] Administration Heparin Sodium (Porcine) 5,000 unit 08/19/19 22:00 08/21/19 08:59 Heparin - SQ 5,000 unit BID [facility] Administration Clindamycin Phosphate 600 mg in 50 mls @ 100 mls/hr 08/20/19 03:00 08/21/19 15:09 Cleocin 600 Mg Premix Ivpb - IVPB 100 mls/hr Q6H-IV [facility] Administration Protocol Piperacillin Sod/Tazobactam 50 mls @ 100 mls/hr 08/20/19 12:30 08/21/19 18:56 Sod 3.375 gm/ Dextrose IVPB 100 mls/hr Q8H-IV [facility] Administration Protocol Lactobacillus Acidophilus 1 tab 08/20/19 10:00 08/21/19 08:59 Bacid - PO 1 tab DAILY [facility] Administration Non-Formulary Medication 6 mg 08/20/19 20:00 08/20/19 20:43 Ropinirole Hcl [Requip Xl] PO 6 mg 1999 [facility] Administration Potassium Chloride 10 meq 08/20/19 10:00 08/21/19 08:59 K-Dur - PO 10 meq DAILY [facility] Administration ASSESSMENT/PLAN: 78 year-old female with a PMH significant for Parkinson's disease and chronic right lower extremity lymphedema, admitted for RLE cellulitis. 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 Full code. Visit type - Emergency Visit Emergency Visit: Yes ED Registration Date: 08/19/19 Care time: The patient presented to the Emergency Department on the above date and was hospitalized for further evaluation of their emergent condition. - New Patient This patient is new to me today: Yes Date on this admission: 08/21/19 - Critical Care Critical Care patient: No
[2019-08-21] MEDS: CALCIUM CARBONATE 650 MG TABLET PO SCH (21:10)
[2019-08-22] MEDS ORDERED: PIPERACILLIN/TAZOBACTAM 3.375 GM VIAL IVPB ONE ×2 (00:47→08:30)
[2019-08-22] MEDS ORDERED: DEXTROSE 5%-WATER - 50 ML IVPB ONE ×2 (00:47→08:31)
[2019-08-22] MEDS: PIPERACILLIN/TAZOB 3.375 GM 3.375 GM in DEXTROSE 5%-WATER - 50 ML IVPB SCH ×3 (01:49→18:31)
[2019-08-22] MEDS: CLINDAMYCIN 600MG PREMIX IVPB 600 MG/50 ML BAG IVPB SCH ×2 (02:15→09:00)
[2019-08-22] MEDS: CARBIDOP 25MG/LEVODOPA 100MG/ENTACAPONE 200MG TABLET PO SCH ×4 (08:05→20:51)
[2019-08-22] MEDS ORDERED: PT OWN MED DRAWER 7, Y5N ONE (08:32)
[2019-08-22] MEDS: LACTOBACILLUS ACIDOPHILUS 1 TABLET PO SCH (09:34)
[2019-08-22] MEDS: POTASSIUM CHLORIDE TABS 10 MEQ TABLET.ER (FP) PO SCH (09:34)
[2019-08-22] MEDS: FUROSEMIDE 20 MG TABLET (FP) PO SCH (09:34)
[2019-08-22] MEDS: ASPIRIN COATED 81 MG TABLET.EC PO SCH (09:34)
[2019-08-22] MEDS: HEPARIN NA (PORCINE) 5,000 UNITS/ML 1ML VIAL SQ SCH ×2 (09:35→21:01)
[2019-08-22] MEDS: AMANTADINE HCL 100 MG TABLET PO SCH (09:35)
--- NOTE | 2019-08-22 10:11 | PN ---
Physical Exam: SUBJECTIVE: Patient seen and examined oob to chair. Advised patient her COVID test was positive and she will be transferred to [facility]. Patient denies fever, cough, SOB, other than her leg she feels well. OBJECTIVE: Vital Signs Period Temp Pulse Resp BP Sys/Dodson Pulse Ox Last 24 Hr 97.7 F-98.8 F 65-72 18-18 106-152/45-59 95-100 GENERAL: The patient is awake, alert, and fully oriented, in no acute distress. LUNGS: Breath sounds equal, clear to auscultation bilaterally, no wheezes, no crackles, no accessory muscle use. HEART: Regular rate and rhythm, S1, S2 without murmur, rub or gallop. ABDOMEN: Soft, nontender, nondistended NEUROLOGICAL: Cranial nerves II through XII grossly intact. Normal speech Active Medications Generic Name Dose Route Start Last Admin Trade Name Freq PRN Reason Stop Dose Admin Acetaminophen 650 mg 08/20/19 10:04 08/21/19 06:40 Tylenol - PO 650 mg Q4H PRN Administration pain Amantadine HCl 100 mg 08/20/19 10:00 08/22/19 09:35 Symmetrel - PO 100 mg DAILY [facility] Administration Aspirin 81 mg 08/20/19 10:00 08/22/19 09:34 Ecotrin - PO 81 mg DAILY [facility] Administration Calcium Carbonate 650 mg 08/20/19 22:00 08/21/19 21:10 Calcium Carbonate - PO Not Given HS [facility] Carbidopa/Levodopa/Entacapone 1 tab 08/20/19 08:00 08/22/19 08:05 Stalevo 100 - PO 1 tab 0800,1200,1600,2000 [facility] Administration Furosemide 20 mg 08/20/19 10:00 08/22/19 09:34 Lasix - PO 20 mg DAILY [facility] Administration Heparin Sodium (Porcine) 5,000 unit 08/19/19 22:00 08/22/19 09:35 Heparin - SQ 5,000 unit BID [facility] Administration Clindamycin Phosphate 600 mg in 50 mls @ 100 mls/hr 08/20/19 03:00 08/22/19 09:00 Cleocin 600 Mg Premix Ivpb - IVPB 100 mls/hr Q6H-IV [facility] Administration Protocol Piperacillin Sod/Tazobactam 50 mls @ 100 mls/hr 08/20/19 12:30 08/22/19 01:49 Sod 3.375 gm/ Dextrose IVPB 100 mls/hr Q8H-IV [facility] Administration Protocol Lactobacillus Acidophilus 1 tab 08/20/19 10:00 08/22/19 09:34 Bacid - PO 1 tab DAILY [facility] Administration Non-Formulary Medication 6 mg 08/20/19 20:00 08/21/19 20:37 Ropinirole Hcl [Requip Xl] PO 6 mg 2000 [facility] Administration Potassium Chloride 10 meq 08/20/19 10:00 08/22/19 09:34 K-Dur - PO 10 meq DAILY [facility] Administration ASSESSMENT/PLAN: 78 year-old female with a PMH significant for Parkinson's disease and chronic right lower extremity lymphedema, admitted for RLE cellulitis. Right lower extremity cellulitis Chronic right lower extremity lymphedema --original insult to leg was in mid-May, completed course of Augmentin in June, wound opened up again several days ago --concern for osteo, but cannot get MRI due to right eye prosthesis with gold metal struts; CT done today pending dictation --seen and evaluated by ID, continue Zosyn (day #3), clinda (day #3) COVID (+) --swab came back today positive --spoke with son Nadeem Rivero (cell: [phone]): patient lives with son, his , and daughter; all of them have been in and out of the house, going to work daily --08/18 CXR showed mild bilateral interstitial markings, no sign of infil trates --T100.2 on admission, afebrile since then; no cough, no SOB, no hypoxia --observe off antibiotics --will advise ID Parkinson's disease --continue carbidopa/levodopa, ropinirole 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 Full code. Visit type - Emergency Visit Emergency Visit: Yes ED Registration Date: 08/19/19 Care time: The patient presented to the Emergency Department on the above date and was hospitalized for further evaluation of their emergent condition. - New Patient This patient is new to me today: No - Critical Care Critical Care patient: No
--- NOTE | 2019-08-22 14:35 | PN ---
Progress Note, Physician History of Present Illness: stable leg still swollen ct scan noted abscess seen - Current Medication List Current Medications: Active Medications Acetaminophen (Tylenol -) 650 mg PO Q4H PRN PRN Reason: pain Last Admin: 08/21/19 06:40 Dose: 650 mg Documented by: Amantadine HCl (Symmetrel -) 100 mg PO DAILY [facility] Last Admin: 08/22/19 09:35 Dose: 100 mg Documented by: Aspirin (Ecotrin -) 81 mg PO DAILY [facility] Last Admin: 08/22/19 09:34 Dose: 81 mg Documented by: Calcium Carbonate (Calcium Carbonate -) 650 mg PO HS [facility] Last Admin: 08/21/19 21:10 Dose: Not Given Documented by: Carbidopa/Levodopa/Entacapone (Stalevo 100 -) 1 tab PO 0800,1200,1600,1999 [facility] Last Admin: 08/22/19 12:00 Dose: 1 tab Documented by: Furosemide (Lasix -) 20 mg PO DAILY [facility] Last Admin: 08/22/19 09:34 Dose: 20 mg Documented by: Heparin Sodium (Porcine) (Heparin -) 5,000 unit SQ BID [facility] Last Admin: 08/22/19 09:35 Dose: 5,000 unit Documented by: Clindamycin Phosphate (Cleocin 600 Mg Premix Ivpb -) 600 mg in 50 mls @ 100 mls/hr IVPB Q6H-IV [facility]; Protocol Last Admin: 08/22/19 09:00 Dose: 100 mls/hr Documented by: Piperacillin Sod/Tazobactam (Sod 3.375 gm/ Dextrose) 50 mls @ 100 mls/hr IVPB Q8H-IV [facility]; Protocol Last Admin: 08/22/19 10:30 Dose: 100 mls/hr Documented by: Lactobacillus Acidophilus (Bacid -) 1 tab PO DAILY [facility] Last Admin: 08/22/19 09:34 Dose: 1 tab Documented by: Non-Formulary Medication (Ropinirole Hcl [Requip Xl]) 6 mg PO 1999 [facility] Last Admin: 08/21/19 20:37 Dose: 6 mg Documented by: Potassium Chloride (K-Dur -) 10 meq PO DAILY [facility] Last Admin: 08/22/19 09:34 Dose: 10 meq Documented by: - Objective Vital Signs: Vital Signs Temperature 97.9 F 06/30/20 05:00 Pulse Rate 67 08/22/19 05:00 Respiratory Rate 18 08/22/19 08:00 Blood Pressure 152/59 L 08/22/19 05:00 O2 Sat by Pulse Oximetry (%) 97 08/22/19 08:00 Constitutional: Yes: Calm, Mild Distress Cardiovascular: Yes: S1, S2 Respiratory: Yes: Regular, CTA Bilaterally Gastrointestinal: Yes: Normal Bowel Sounds, Soft Musculoskeletal: Yes: WNL Extremities: Yes: Other Wound/Incision: Yes: Dressing Dry and Intact Neurological: Yes: Alert, Oriented Labs: CBC, BMP 08/21/19 06:59 08/21/19 06:59 Assessment/Plan 78 year-old female with a PMH significant for Parkinson's disease and chronic right lower extremity lymphedema, admitted for RLE cellulitis. Right lower extremity cellulitis Chronic right lower extremity lymphedema Parkinson's disease Right eye prosthesis covid positive plan abx need drainage rest as per the team need isolation no treatment for covid
[2019-08-22] MEDS ORDERED: ACETAMINOPHEN 325 MG TABLET (FP) PO PRN (15:18)
--- NOTE | 2019-08-22 16:02 | HOSP ---
Subjective - Review of Symptoms Events since last encounter: Seen and examined at bedside at [facility]. Patient is alert and oriented x3 and hemodynamically stable. Cultures positive for Serratia sensitive to Zosyn. Discussed with ID, and will continue on Zosyn at this time. Surgical consult placed for cellulitis with abscess for possible I&D. Patient accepted to hospitalist service Physical Examination Vital Signs: Vital Signs Temperature 97.9 F 08/22/19 05:00 Pulse Rate 67 08/22/19 05:00 Respiratory Rate 18 08/22/19 15:16 Blood Pressure 152/59 L 08/22/19 05:00 O2 Sat by Pulse Oximetry (%) 97 08/22/19 15:16 Labs: CBC, BMP 08/21/19 06:59 08/21/19 06:59
--- NOTE | 2019-08-22 16:36 | CONSULT ---
- Consultation REQUESTING PROVIDER: CONSULT REQUEST: We have been asked to surgically evaluate this patient for RLE abscess/cellulitis PCP:Edmar Jean Baptiste MD HISTORY OF PRESENT ILLNESS: 78 y/o F w/ PMHx Parkinson's disease transferred from [place] after coming back + for COVID. Surgery consulted for RLE abscess. Pt reports she hit her lower leg and sustained a cut mid May. Wound worsened and she saw her PCP who prescribed a 10 day course of Augmentin in June. States leg improved, however noted it was red this morning and more swollen with a small wound. States wound has been draining purulent drainage since this morning. Denies cp/sob, n/v/d. Denies any prior wounds or le surgeries. Pt reports chronic edema to her right leg, but it is currently slightly larger than normal. She had an ultrasound on 07/28 which was negative for DVT. PMHx: as above PSHx: appendectomy, tonsillectomy, ganglion cyst Home Medications Medication Instructions Recorded Aspirin [Aspir 81] 81 mg PO DAILY 12/09/12 Calcium Carbonate [Tums Ultra] 400 mg PO HS 12/09/12 Ropinirole HCl [Requip Xl] 6 mg PO HS tablet 07/09/15 [id number] 1 each PO QID tablet 08/06/15 [Stalevo 100 -] Furosemide [Lasix] 20 mg PO DAILY 04/13/17 Amantadine HCl [Amantadine] 100 mg PO DAILY 10/22/18 Allergies Allergy/AdvReac Type Severity Reaction Status Date / Time No Known Allergies Allergy Verified 08/19/19 17:25 REVIEW OF SYSTEMS: CONSTITUTIONAL: Absent: fever, chills CARDIOVASCULAR: Absent: chest pain RESPIRATORY: Absent: cough, shortness of breath GASTROINTESTINAL: Absent: abdominal pain PHYSICAL EXAM: GENERAL: Awake, alert, and fully oriented, in no acute distress. HEAD: Normal with no signs of trauma. LOWER EXTREMITIES: RLE with 1+ pitting edema (roughly twice the size of lle- baseline per pt), +erythema at distal anterior tibia with approx 1x1cm wound + purulent drainage, no foul odor, + area of fluctuance adjacent to wound. Vasc: 2+ b/l dps, unable to appreciate PTs secondary to edema. Vital Signs Temperature 97.9 F 08/22/19 05:00 Pulse Rate 67 08/22/19 05:00 Respiratory Rate 18 08/22/19 15:16 Blood Pressure 152/59 L 08/22/19 05:00 O2 Sat by Pulse Oximetry (%) 97 08/22/19 15:16 Lab Results WBC 5.2 K/mm3 (4.0-10.8) 08/21/19 06:59 RBC 3.34 M/mm3 (3.60-5.2) L 08/21/19 06:59 Hgb 10.9 GM/dl (10.7-15.3) 08/21/19 06:59 Hct 31.4 % (32.4-45.2) L 08/21/19 06:59 MCV 93.9 fl (80-96) 08/21/19 06:59 MCHC 34.7 g/dl (32.0-36.0) 08/21/19 06:59 RDW 13.7 % (11.6-15.6) 08/21/19 06:59 Plt Count 131 K/MM3 (134-434) L 08/21/19 06:59 Sodium 137 mmol/L (136-145) 08/21/19 06:59 Potassium 4.0 mmol/L (3.5-5.1) 08/21/19 06:59 Chloride 105 mmol/L (98-107) 08/21/19 06:59 Carbon Dioxide 24 mmol/L (21-32) 08/21/19 06:59 Anion Gap 8 MMOL/L (8-16) 08/21/19 06:59 BUN 12.0 mg/dl (7-18) 08/21/19 06:59 Creatinine 0.7 mg/dl (0.55-1.3) 08/21/19 06:59 Random Glucose 93 mg/dl (74-106) 08/21/19 06:59 Calcium 8.2 mg/dl (8.5-10) L 08/21/19 06:59 A/P: 78 y/o F w/ PMHx Parkinson's disease transferred from [place] after coming back + for COVID. COVID + CT with anterior li abscess Afebrile, no leukocytosis -Coags pending -Plan to I&D bedside in AM d/w attending Dr Yen
[2019-08-22] MEDS: ROPINIROLE HCL 6 MG PO SCH (20:51)
[2019-08-22] MEDS ORDERED: CALCIUM CARBONATE 650 MG TABLET PO SCH (22:00)
[2019-08-23] MEDS: PIPERACILLIN/TAZOB 3.375 GM 3.375 GM in DEXTROSE 5%-WATER - 50 ML IVPB SCH ×3 (02:16→17:17)
[2019-08-23 08:02] LABS: INR 0.91 (0.83-1.09); PROTHROMBIN TIME (PATIENT) 10.7 SEC (9.7-13.0)
[2019-08-23 08:05] LABS: ACTIVATED PTT 28.5 SECONDS (25.2-36.5)
[2019-08-23 08:24] LABS: BASO % 0.8 % (0-2.0); EOS % 1.7 % (0-4.5); HEMATOCRIT 33.8 % (32.4-45.2); HEMOGLOBIN 11.6 GM/dL (10.7-15.3); LYMPH % 31.4 % (8-40); MCH 32.9 pg (25.7-33.7); MCHC 34.4 g/dl (32.0-36.0); MEAN CELL VOLUME 95.5 fl (80-96); MEAN PLT VOLUME 8.9 fl (7.5-11.1); MONO % 13.4 % (3.8-10.2); NEUT % 52.7 % (42.8-82.8); PLATELET COUNT 171 K/MM3 (134-434); RBC 3.54 M/mm3 (3.60-5.2); RDW 13.8 % (11.6-15.6); WHITE BLOOD COUNT 3.8 K/mm3 (4.0-10.0)
[2019-08-23 08:32] LABS: BLOOD UREA NITROGEN 16.3 mg/dL (7-18); CREATININE 0.9 mg/dL (0.55-1.3); POTASSIUM 3.8 mmol/L (3.5-5.1)
[2019-08-23] MEDS: CARBIDOP 25MG/LEVODOPA 100MG/ENTACAPONE 200MG TABLET PO SCH ×4 (08:55→20:56)
[2019-08-23] MEDS: ASPIRIN COATED 81 MG TABLET.EC PO SCH (09:10)
[2019-08-23] MEDS: HEPARIN NA (PORCINE) 5,000 UNITS/ML 1ML VIAL SQ SCH ×3 (09:10→21:47)
[2019-08-23] MEDS: POTASSIUM CHLORIDE TABS 10 MEQ TABLET.ER (FP) PO SCH (09:11)
[2019-08-23] MEDS: AMANTADINE HCL 100 MG TABLET PO SCH (09:11)
[2019-08-23] MEDS: FUROSEMIDE 20 MG TABLET (FP) PO SCH (09:12)
[2019-08-23] MEDS ORDERED: LACTOBACILLUS ACIDOPHILUS 1 TABLET PO SCH (10:00)
--- NOTE | 2019-08-23 13:35 | PN ---
Progress Note, Physician History of Present Illness: patient stable leg still swollen plan for drainage of abscess - Current Medication List Current Medications: Active Medications Acetaminophen (Tylenol -) 650 mg PO Q4H PRN PRN Reason: PAIN LEVEL 1 - 3 Amantadine HCl (Symmetrel -) 100 mg PO DAILY [facility] Last Admin: 08/23/19 09:11 Dose: 100 mg Documented by: Aspirin (Ecotrin -) 81 mg PO DAILY [facility] Last Admin: 08/23/19 09:10 Dose: 81 mg Documented by: Calcium Carbonate (Calcium Carbonate -) 650 mg PO HS [facility] Last Admin: 08/22/19 21:01 Dose: 650 mg Documented by: Carbidopa/Levodopa/Entacapone (Stalevo 100 -) 1 tab PO 0800,1200,1600,1999 [facility] Last Admin: 08/23/19 08:55 Dose: 1 tab Documented by: Furosemide (Lasix -) 20 mg PO DAILY [facility] Last Admin: 08/23/19 09:12 Dose: 20 mg Documented by: Heparin Sodium (Porcine) (Heparin -) 5,000 unit SQ TID [facility] Piperacillin Sod/Tazobactam (Sod 3.375 gm/ Dextrose) 50 mls @ 100 mls/hr IVPB Q8H-IV [facility]; Protocol Last Admin: 08/23/19 09:12 Dose: 100 mls/hr Documented by: Lactobacillus Acidophilus (Bacid -) 1 tab PO BID [facility] Non-Formulary Medication (Ropinirole Hcl [Requip Xl]) 6 mg PO 1999 [facility] Last Admin: 08/22/19 20:51 Dose: 6 mg Documented by: Potassium Chloride (K-Dur -) 10 meq PO DAILY [facility] Last Admin: 08/23/19 09:11 Dose: 10 meq Documented by: - Objective Vital Signs: Vital Signs Temperature 98.1 F 08/23/19 09:00 Pulse Rate 76 08/23/19 09:00 Respiratory Rate 18 08/23/19 09:00 Blood Pressure 149/67 08/23/19 09:00 O2 Sat by Pulse Oximetry (%) 97 08/23/19 09:00 Constitutional: Yes: No Distress, Calm Cardiovascular: Yes: S1, S2 Respiratory: Yes: Regular, CTA Bilaterally Gastrointestinal: Yes: Normal Bowel Sounds, Soft Musculoskeletal: Yes: WNL Extremities: Yes: Erythema, Other Integumentary: Yes: Erythema, Other Wound/Incision: Yes: Dressing Removed, Draining Neurological: Yes: Alert, Oriented Psychiatric: Yes: Alert, Oriented Labs: CBC, BMP 08/23/19 06:45 08/23/19 06:45 INR, PTT INR 0.91 (0.83-1.09) 08/23/19 06:45 Assessment/Plan 78 year-old female with a PMH significant for Parkinson's disease and chronic right lower extremity lymphedema, admitted for RLE cellulitis. Right lower extremity cellulitis COVID (+) Parkinson's disease Right eye prosthesis rt leg abscess plan continue current mgmt plan for drainage wound cx rest as per the team
--- NOTE | 2019-08-23 13:36 | PROC ---
Incision and Drainage Indication/Location: RLE abscess / tibia (anterior) Risks and Benefits Explained: Yes Consent on Chart: Yes Betadine cleansed: Yes Anesthesia: 1% Lidocaine Blade Size: 10 Drainage: 15cc raheem pus and fat necrosis Irrigated with Normal Saline: Yes (60cc sterile water) Plain packing: Yes (No iodoform available so packed with wet kerlix) Sterile Dressing Applied: Yes - Remarks Remarks: circumfrential undermining about 3cm
--- NOTE | 2019-08-23 17:01 | PN ---
Physical Exam: SUBJECTIVE: Patient seen and examined bedside, she was sitting up comfortable in no acute distress. Overnight she had 4 episodes of watery diarrhea and 2 more episodes this morning. OBJECTIVE: Vital Signs Period Temp Pulse Resp BP Sys/Dodson Pulse Ox Last 24 Hr 98 F-98.6 F 76-82 18-20 108-149/58-74 97-97 GENERAL: The patient is awake, alert, in no acute distress. LUNGS: Breath sounds equal, clear to auscultation bilaterally HEART: Regular rate and rhythm, S1, S2. ABDOMEN: Soft, nontender, nondistended EXTREMITIES: Right lower leg edema and wound currently bandaged. Erythematous with surrounding edema. Laboratory Results - last 24 hr 08/23/19 08/23/19 08/23/19 06:45 06:45 06:45 WBC 3.8 L RBC 3.54 L Hgb 11.6 Hct 33.8 MCV 95.5 MCH 32.9 MCHC 34.4 RDW 13.8 Plt Count 171 MPV 8.9 Absolute Neuts (auto) 2.0 Neutrophils % 52.7 Lymphocytes % 31.4 Monocytes % 13.4 H Eosinophils % 1.7 Basophils % 0.8 Nucleated RBC % 0 PT with INR 10.70 INR 0.91 PTT (Actin FS) 28.5 Sodium 142 Potassium 3.8 Chloride 111 H Carbon Dioxide 28 Anion Gap 3 L BUN 16.3 Creatinine 0.9 Est GFR (CKD-EPI)AfAm 70.98 Est GFR (CKD-EPI)NonAf 61.24 Random Glucose 91 Calcium 9.0 Active Medications Generic Name Dose Route Start Last Admin Trade Name Freq PRN Reason Stop Dose Admin Acetaminophen 650 mg 08/22/19 15:18 Tylenol - PO Q4H PRN PAIN LEVEL 1 - 3 Amantadine HCl 100 mg 08/23/19 10:00 08/23/19 09:11 Symmetrel - PO 100 mg DAILY GEOVANI Administration Aspirin 81 mg 08/23/19 10:00 08/23/19 09:10 Ecotrin - PO 81 mg DAILY GEOVANI Administration Calcium Carbonate 650 mg 08/22/19 22:00 08/22/19 21:01 Calcium Carbonate - PO 650 mg HS GEOVANI Administration Carbidopa/Levodopa/Entacapone 1 tab 08/22/19 16:00 08/23/19 12:55 Stalevo 100 - PO 1 tab 0800,1200,1600,2000 GEOVANI Administration Furosemide 20 mg 08/23/19 10:00 08/23/19 09:12 Lasix - PO 20 mg DAILY GEOVANI Administration Heparin Sodium (Porcine) 5,000 unit 08/23/19 14:00 Heparin - SQ TID GEOVANI Piperacillin Sod/Tazobactam 50 mls @ 100 mls/hr 08/22/19 18:00 08/23/19 09:12 Sod 3.375 gm/ Dextrose IVPB 100 mls/hr Q8H-IV GEOVANI Administration Protocol Lactobacillus Acidophilus 1 tab 08/23/19 22:00 Bacid - PO BID GEOVANI Non-Formulary Medication 6 mg 08/22/19 20:00 08/22/19 20:51 Ropinirole Hcl [Requip Xl] PO 6 mg 1999 GE[facility] Administration Potassium Chloride 10 meq 08/23/19 10:00 08/23/19 09:11 K-Dur - PO 10 meq DAILY GEOVANI Administration ASSESSMENT/PLAN: 78yF with PMH Parkinson's disease presented with leg erythema, swelling and drainage, was admitted with cellulites that previous failed PO antibiotic treatment. Cellulits likely in s/o venous stasis - clindamycin 600 started 08/19 - d/c on 08/21 - Started Piperacillin Tazobactam 3.375 mg, on day 2 - Surgery performed I&D today and sent cultures - follow WBC trend/fever curve - cont home lasix Parkinson's disease - cont home meds Hospital Onset Diarrhea - r/o cdiff, stool sample to be collected - increased probiotics - continue to monitor electrolytes and patient for signs of dehydration or imbalance Covid-19 Positive (Asymptomatic) - monitor patient O2 sat regularly - inflammatory markers ordered and to be followed daily for changes PPX - heparin 5000u SC increased to TID - no indication for GI PPX FEN - po fluids as tolerated - BMP in am, k repleted - regular diet as tolerated - FALL RISK - needs assistance to get out of bed - continue PT Dispo: This patient currently requires inpatient management of her condition. Visit type - Emergency Visit Emergency Visit: Yes ED Registration Date: 08/19/19 Care time: The patient presented to the Emergency Department on the above date and was hospitalized for further evaluation of their emergent condition. - New Patient This patient is new to me today: Yes Date on this admission: 08/24/19 - Critical Care Critical Care patient: No - Discharge Referral Referred to [facility] Med P.C.: No ATTENDING PHYSICIAN STATEMENT I saw and evaluated the patient. I reviewed the resident's note and discussed the case with the resident. I agree with the resident's findings and plan as documented. SUBJECTIVE: OBJECTIVE: ASSESSMENT AND PLAN:
--- NOTE | 2019-08-23 17:56 | PN ---
Teaching Attending Note Name of Resident: Autumn Hsieh ATTENDING PHYSICIAN STATEMENT I saw and evaluated the patient. I reviewed the resident's note and discussed the case with the resident. I agree with the resident's findings and plan as documented. SUBJECTIVE: Patient is feeling better , no fever or chills. OBJECTIVE: Vital Signs Temperature 98.1 F 08/23/19 09:00 Pulse Rate 76 08/23/19 09:00 Respiratory Rate 18 08/23/19 09:00 Blood Pressure 149/67 08/23/19 09:00 O2 Sat by Pulse Oximetry (%) 97 08/23/19 09:00 PE: per resident's note right eye prosthesis with gold metal struts CBCD WBC 3.8 K/mm3 (4.0-10.0) L 08/23/19 06:45 RBC 3.54 M/mm3 (3.60-5.2) L 08/23/19 06:45 Hgb 11.6 GM/dL (10.7-15.3) 08/23/19 06:45 Hct 33.8 % (32.4-45.2) 08/23/19 06:45 MCV 95.5 fl (80-96) 08/23/19 06:45 MCHC 34.4 g/dl (32.0-36.0) 08/23/19 06:45 RDW 13.8 % (11.6-15.6) 08/23/19 06:45 Plt Count 171 K/MM3 (134-434) 08/23/19 06:45 MPV 8.9 fl (7.5-11.1) 08/23/19 06:45 CMP Sodium 142 mmol/L (136-145) 08/23/19 06:45 Potassium 3.8 mmol/L (3.5-5.1) 08/23/19 06:45 Chloride 111 mmol/L (98-107) H 08/23/19 06:45 Carbon Dioxide 28 mmol/L (21-32) 08/23/19 06:45 Anion Gap 3 MMOL/L (8-16) L 08/23/19 06:45 BUN 16.3 mg/dL (7-18) 08/23/19 06:45 Creatinine 0.9 mg/dL (0.55-1.3) 08/23/19 06:45 Random Glucose 91 mg/dL (74-106) 08/23/19 06:45 Calcium 9.0 mg/dL (8.5-10.1) 08/23/19 06:45 Total Bilirubin 1.0 mg/dl (0.2-1) 08/19/19 17:49 AST 16 U/L (15-37) 08/19/19 17:49 ALT 6 U/L (13-61) L 08/19/19 17:49 Alkaline Phosphatase 49 U/L (45-117) 08/19/19 17:49 Total Protein 5.7 g/dl (6.4-8.2) L 08/19/19 17:49 Albumin 3.6 g/dl (3.4-5.0) 08/19/19 17:49 Current Medications Generic Name Dose Route Start Last Admin Trade Name Freq PRN Reason Stop Dose Admin Acetaminophen 650 mg 08/22/19 15:18 Tylenol - PO Q4H PRN PAIN LEVEL 1 - 3 Amantadine HCl 100 mg 08/23/19 10:00 08/23/19 09:11 Symmetrel - PO 100 mg DAILY GEOVANI Administration Aspirin 81 mg 08/23/19 10:00 08/23/19 09:10 Ecotrin - PO 81 mg DAILY GEOVANI Administration Calcium Carbonate 650 mg 08/22/19 22:00 08/22/19 21:01 Calcium Carbonate - PO 650 mg HS GEOVANI Administration Carbidopa/Levodopa/Entacapone 1 tab 08/22/19 16:00 08/23/19 16:55 Stalevo 100 - PO 1 tab 0800,1200,1600,2000 GEOVANI Administration Furosemide 20 mg 08/23/19 10:00 08/23/19 09:12 Lasix - PO 20 mg DAILY GEOVANI Administration Heparin Sodium (Porcine) 5,000 unit 08/23/19 14:00 08/23/19 17:18 Heparin - SQ Not Given TID GEOVANI Piperacillin Sod/Tazobactam 50 mls @ 100 mls/hr 08/22/19 18:00 08/23/19 17:17 Sod 3.375 gm/ Dextrose IVPB 100 mls/hr Q8H-IV GEOVANI Administration Protocol Lactobacillus Acidophilus 1 tab 08/23/19 22:00 Bacid - PO BID GEOVANI Non-Formulary Medication 6 mg 08/22/19 20:00 08/22/19 20:51 Ropinirole Hcl [Requip Xl] PO 6 mg 2000 GEOVANI Administration Potassium Chloride 10 meq 08/23/19 10:00 08/23/19 09:11 K-Dur - PO 10 meq DAILY GEOVANI Administration Home Medications Medication Instructions Recorded Aspirin [Aspir 81] 81 mg PO DAILY 12/09/12 Calcium Carbonate [Tums Ultra] 400 mg PO HS 12/09/12 Ropinirole HCl [Requip Xl] 6 mg PO HS tablet 07/09/15 [id number] 1 each PO QID tablet 08/06/15 [Stalevo 100 -] Furosemide [Lasix] 20 mg PO DAILY 04/13/17 Amantadine HCl [Amantadine] 100 mg PO DAILY 10/22/18 Laboratory Tests 08/19/19 08/19/19 08/20/19 17:49 17:55 06:10 Lymphocytes % 12.6 15.0 D-Dimer Ferritin LD Total C-Reactive Protein COVID-19 (NICK) Detected H 08/21/19 08/23/19 08/24/19 06:59 06:45 06:00 Lymphocytes % 20.4 31.4 D-Dimer Ferritin 75.4 LD Total 205 C-Reactive Protein 2.9 H COVID-19 (NICK) 08/24/19 08:43 Lymphocytes % D-Dimer 1231 H Ferritin LD Total C-Reactive Protein COVID-19 (NICK) CT of lower extremity Ct with contrast: Extensive sq edema with poorly defined fluid collection anteriorly within the mid calf suspecious for a small abscess. ASSESSMENT AND PLAN: THis is a 78yof with Pmhx of Parkinson's disease and chronic right lower extremity lymphedema, admitted for RLE cellulitis. 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
[2019-08-23] MEDS: ROPINIROLE HCL 6 MG PO SCH (20:56)
[2019-08-23] MEDS: LACTOBACILLUS ACIDOPHILUS 1 TABLET PO SCH (21:46)
[2019-08-24] MEDS: PIPERACILLIN/TAZOB 3.375 GM 3.375 GM in DEXTROSE 5%-WATER - 50 ML IVPB SCH ×3 (02:12→17:02)
[2019-08-24] MEDS: HEPARIN NA (PORCINE) 5,000 UNITS/ML 1ML VIAL SQ SCH ×2 (05:40→14:08)
[2019-08-24] MEDS: CARBIDOP 25MG/LEVODOPA 100MG/ENTACAPONE 200MG TABLET PO SCH ×4 (08:25→20:20)
--- NOTE | 2019-08-24 08:51 | PN ---
Progress Note (short form) - Note Progress Note: GENERAL SURGERY Day 1 s/p bedside I&D anterior li abscess (RLE) Doing well. Resting comfortably without complaint. AVSS. Afebrile. Gen: nad RLE: dressing soaked (expected as wound is open and draining). surrounding tissue less indurated. Problem List - Problems (1) Abscess of right lower extremity Assessment/Plan: Daily wound irrigation and packing as ordered f/u wound culture cont medical management iv abx Code(s): L02.415 - CUTANEOUS ABSCESS OF RIGHT LOWER LIMB
[2019-08-24 08:56] LABS: HEMATOCRIT 34.6 % (32.4-45.2); HEMOGLOBIN 11.7 GM/dL (10.7-15.3); MCH 32.6 pg (25.7-33.7); MCHC 33.8 g/dl (32.0-36.0); MEAN CELL VOLUME 96.5 fl (80-96); MEAN PLT VOLUME 8.7 fl (7.5-11.1); PLATELET COUNT 171 K/MM3 (134-434); RBC 3.59 M/mm3 (3.60-5.2); RDW 14.4 % (11.6-15.6); WHITE BLOOD COUNT 4.5 K/mm3 (4.0-10.0)
[2019-08-24 09:29] LABS: BLOOD UREA NITROGEN 17.2 mg/dL (7-18); CALCIUM 8.8 mg/dL (8.5-10.1); CREATININE 0.8 mg/dL (0.55-1.3); MAGNESIUM 2.5 mg/dL (1.8-2.4); PHOSPHOROUS 2.5 mg/dL (2.5-4.9); POTASSIUM 3.6 mmol/L (3.5-5.1)
[2019-08-24] MEDS: POTASSIUM CHLORIDE TABS 10 MEQ TABLET.ER (FP) PO SCH (09:51)
[2019-08-24] MEDS: LACTOBACILLUS ACIDOPHILUS 1 TABLET PO SCH ×2 (09:51→21:24)
[2019-08-24] MEDS: AMANTADINE HCL 100 MG TABLET PO SCH (09:51)
[2019-08-24] MEDS: FUROSEMIDE 20 MG TABLET (FP) PO SCH (09:51)
[2019-08-24] MEDS: ASPIRIN COATED 81 MG TABLET.EC PO SCH (09:52)
--- NOTE | 2019-08-24 12:33 | PN ---
Progress Note, Physician History of Present Illness: stable leg looks slightly better - Current Medication List Current Medications: Active Medications Acetaminophen (Tylenol -) 650 mg PO Q4H PRN PRN Reason: PAIN LEVEL 1 - 3 Amantadine HCl (Symmetrel -) 100 mg PO DAILY [facility] Last Admin: 08/24/19 09:51 Dose: 100 mg Documented by: Aspirin (Ecotrin -) 81 mg PO DAILY [facility] Last Admin: 08/24/19 09:52 Dose: 81 mg Documented by: Carbidopa/Levodopa/Entacapone (Stalevo 100 -) 1 tab PO 0800,1200,1600,1999 [facility] Last Admin: 08/24/19 12:07 Dose: 1 tab Documented by: Furosemide (Lasix -) 20 mg PO DAILY [facility] Last Admin: 08/24/19 09:51 Dose: 20 mg Documented by: Heparin Sodium (Porcine) (Heparin -) 5,000 unit SQ TID [facility] Last Admin: 08/24/19 05:40 Dose: 5,000 unit Documented by: Piperacillin Sod/Tazobactam (Sod 3.375 gm/ Dextrose) 50 mls @ 100 mls/hr IVPB Q8H-IV [facility]; Protocol Last Admin: 08/24/19 09:52 Dose: 100 mls/hr Documented by: Lactobacillus Acidophilus (Bacid -) 1 tab PO BID [facility] Last Admin: 08/24/19 09:51 Dose: 1 tab Documented by: Non-Formulary Medication (Ropinirole Hcl [Requip Xl]) 6 mg PO 1999 [facility] Last Admin: 08/23/19 20:56 Dose: 6 mg Documented by: Potassium Chloride (K-Dur -) 10 meq PO DAILY [facility] Last Admin: 08/24/19 09:51 Dose: 10 meq Documented by: - Objective Vital Signs: Vital Signs Temperature 98.2 F 08/24/19 10:00 Pulse Rate 76 08/24/19 10:00 Respiratory Rate 18 08/24/19 10:00 Blood Pressure 141/65 08/24/19 10:00 O2 Sat by Pulse Oximetry (%) 98 08/24/19 08:50 Constitutional: Yes: No Distress, Calm Cardiovascular: Yes: S1, S2 Respiratory: Yes: Regular, CTA Bilaterally Gastrointestinal: Yes: Normal Bowel Sounds, Soft Musculoskeletal: Yes: WNL Extremities: Yes: Other Wound/Incision: Yes: Dressing Dry and Intact Neurological: Yes: Alert, Oriented Psychiatric: Yes: Alert, Oriented Labs: CBC, BMP 08/24/19 08:43 08/24/19 06:00 INR, PTT INR 0.91 (0.83-1.09) 08/23/19 06:45 Assessment/Plan 78 year-old female with a PMH significant for Parkinson's disease and chronic right lower extremity lymphedema, admitted for RLE cellulitis. Right lower extremity cellulitis COVID (+) Parkinson's disease Right eye prosthesis rt leg abscess plan continue current mgmt wound care await for cx report rest as per the team
--- NOTE | 2019-08-24 13:24 | PN ---
Physical Exam: SUBJECTIVE: Patient seen and examined bedside. Patient sitting up in bed, in no acute distress, no acute events over night. OBJECTIVE: Vital Signs Vital Signs - 24 hr 08/24/19 08/24/19 08/24/19 02:00 06:00 08:50 Temperature 98.8 F 98.8 F Pulse Rate 68 69 Respiratory 20 20 Rate Blood Pressure 129/62 137/58 L O2 Sat by Pulse 98 Oximetry (%) 08/24/19 10:00 Temperature 98.2 F Pulse Rate 76 Respiratory 18 Rate Blood Pressure 141/65 O2 Sat by Pulse Oximetry (%) GENERAL: The patient is awake, alert, and fully oriented, in no acute distress. HEAD: Normal with no signs of trauma. LUNGS: Breath sounds equal, clear to auscultation bilaterally HEART: Regular rate and rhythm ABDOMEN: Soft, nontender, nondistended EXTREMITIES: Incision from I&D on R li with bloodied packing, no purulent discharge or active bleeding noted on exam. NEUROLOGICAL: Cranial nerves II through XII grossly intact. Normal speech, gait not SKIN: Warm, dry, normal turgor, no rashes or lesions noted Laboratory Results - last 24 hr 08/24/19 08/24/19 08/24/19 06:00 08:43 08:43 WBC 4.5 RBC 3.59 L Hgb 11.7 Hct 34.6 MCV 96.5 H MCH 32.6 MCHC 33.8 RDW 14.4 Plt Count 171 MPV 8.7 D-Dimer 1231 H Sodium 146 H Potassium 3.6 Chloride 121 H Carbon Dioxide 25 Anion Gap 0 L BUN 17.2 Creatinine 0.8 Est GFR (CKD-EPI)AfAm 81.84 Est GFR (CKD-EPI)NonAf 70.61 Random Glucose 92 Calcium 8.8 Phosphorus 2.5 Magnesium 2.5 H Ferritin 75.4 LD Total 205 C-Reactive Protein 2.9 H Active Medications Generic Name Dose Route Start Last Admin Trade Name Freq PRN Reason Stop Dose Admin Acetaminophen 650 mg 08/22/19 15:18 Tylenol - PO Q4H PRN PAIN LEVEL 1 - 3 Amantadine HCl 100 mg 08/23/19 10:00 08/24/19 09:51 Symmetrel - PO 100 mg DAILY GEOVANI Administration Aspirin 81 mg 08/23/19 10:08/24/19 09:52 Ecotrin - PO 81 mg DAILY GEOVANI Administration Carbidopa/Levodopa/Entacapone 1 tab 08/22/19 16:00 08/24/19 12:07 Stalevo 100 - PO 1 tab 0800,1200,1600,2000 GEOVANI Administration Furosemide 20 mg 08/23/19 10:00 08/24/19 09:51 Lasix - PO 20 mg DAILY GEOVANI Administration Heparin Sodium (Porcine) 5,000 unit 08/23/19 14:00 08/24/19 05:40 Heparin - SQ 5,000 unit TID GEOVANI Administration Piperacillin Sod/Tazobactam 50 mls @ 100 mls/hr 08/22/19 18:00 08/24/19 09:52 Sod 3.375 gm/ Dextrose IVPB 100 mls/hr Q8H-IV GEOVANI Administration Protocol Lactobacillus Acidophilus 1 tab 08/23/19 22:00 08/24/19 09:51 Bacid - PO 1 tab BID GEOVANI Administration Non-Formulary Medication 6 mg 08/22/19 20:00 08/23/19 20:56 Ropinirole Hcl [Requip Xl] PO 6 mg 1999 GEOVANI Administration Potassium Chloride 10 meq 08/23/19 10:00 08/24/19 09:51 K-Dur - PO 10 meq DAILY GEOVANI Administration ASSESSMENT/PLAN: 78yF with PMH Parkinson's disease presented with leg erythema, swelling and drainage, was admitted with cellulites that previous failed PO antibiotic treatment. Cellulits likely in s/o venous stasis - clindamycin 600 started 08/19 - d/c on 08/21 - Started Piperacillin Tazobactam 3.375 mg, on day 2 - Surgery performed I&D today and sent cultures - follow WBC trend/fever curve - cont home lasix Parkinson's disease - cont home meds Hospital Onset Diarrhea - r/o cdiff, stool sample sent - increased probiotics - continue to monitor electrolytes and patient for signs of dehydration or imbalance - encourage increase PO water intake Covid-19 Positive (Asymptomatic) - monitor patient O2 sat regularly - inflammatory markers continuing to be monitored, elevation can be seen in labs above. PPX - heparin 5000u SC increased to TID - no indication for GI PPX FEN - Enourages more PO intake - BMP shows increased Na, Mg, and CL, increase hydrations and check BMP again tomorrow. - regular diet as tolerated - FALL RISK - needs assistance to get out of bed - continue PT Dispo: This patient currently requires inpatient management of her condition. Visit type - Emergency Visit Emergency Visit: Yes ED Registration Date: 08/19/19 Care time: The patient presented to the Emergency Department on the above date and was hospitalized for further evaluation of their emergent condition. - New Patient This patient is new to me today: Yes Date on this admission: 08/19/19 - Critical Care Critical Care patient: No - Discharge Referral Referred to [facility] Med P.C.: No ATTENDING PHYSICIAN STATEMENT I saw and evaluated the patient. I reviewed the resident's note and discussed the case with the resident. I agree with the resident's findings and plan as documented. SUBJECTIVE: OBJECTIVE: ASSESSMENT AND PLAN:
--- NOTE | 2019-08-24 19:24 | PN ---
Teaching Attending Note Name of Resident: Autumn Hsieh ATTENDING PHYSICIAN STATEMENT I saw and evaluated the patient. I reviewed the resident's note and discussed the case with the resident. I agree with the resident's findings and plan as documented. SUBJECTIVE: Patient is feeling better. no fever or chills. OBJECTIVE: Vital Signs Temperature 98.8 F 08/24/19 18:00 Pulse Rate 78 08/24/19 18:00 Respiratory Rate 18 08/24/19 18:00 Blood Pressure 138/70 08/24/19 18:00 O2 Sat by Pulse Oximetry (%) 98 08/24/19 08:50 PE: per resident's note CBCD WBC 4.5 K/mm3 (4.0-10.0) 08/24/19 08:43 RBC 3.59 M/mm3 (3.60-5.2) L 08/24/19 08:43 Hgb 11.7 GM/dL (10.7-15.3) 08/24/19 08:43 Hct 34.6 % (32.4-45.2) 08/24/19 08:43 MCV 96.5 fl (80-96) H 08/24/19 08:43 MCHC 33.8 g/dl (32.0-36.0) 08/24/19 08:43 RDW 14.4 % (11.6-15.6) 08/24/19 08:43 Plt Count 171 K/MM3 (134-434) 08/24/19 08:43 MPV 8.7 fl (7.5-11.1) 08/24/19 08:43 CMP Sodium 146 mmol/L (136-145) H 08/24/19 06:00 Potassium 3.6 mmol/L (3.5-5.1) 08/24/19 06:00 Chloride 121 mmol/L (98-107) H 08/24/19 06:00 Carbon Dioxide 25 mmol/L (21-32) 08/24/19 06:00 Anion Gap 0 MMOL/L (8-16) L 08/24/19 06:00 BUN 17.2 mg/dL (7-18) 08/24/19 06:00 Creatinine 0.8 mg/dL (0.55-1.3) 08/24/19 06:00 Random Glucose 92 mg/dL (74-106) 08/24/19 06:00 Calcium 8.8 mg/dL (8.5-10.1) 08/24/19 06:00 Total Bilirubin 1.0 mg/dl (0.2-1) 08/19/19 17:49 AST 16 U/L (15-37) 08/19/19 17:49 ALT 6 U/L (13-61) L 08/19/19 17:49 Alkaline Phosphatase 49 U/L (45-117) 08/19/19 17:49 Total Protein 5.7 g/dl (6.4-8.2) L 08/19/19 17:49 Albumin 3.6 g/dl (3.4-5.0) 08/19/19 17:49 Current Medications Generic Name Dose Route Start Last Admin Trade Name Freq PRN Reason Stop Dose Admin Acetaminophen 650 mg 08/22/19 15:18 Tylenol - PO Q4H PRN PAIN LEVEL 1 - 3 Amantadine HCl 100 mg 08/23/19 10:00 08/24/19 09:51 Symmetrel - PO 100 mg DAILY [facility] Administration Aspirin 81 mg 08/23/19 10:00 08/24/19 09:52 Ecotrin - PO 81 mg DAILY [facility] Administration Carbidopa/Levodopa/Entacapone 1 tab 08/22/19 16:00 08/24/19 16:28 Stalevo 100 - PO 1 tab 0800,1200,1600,2000 [facility] Administration Enoxaparin Sodium 50 mg 08/24/19 22:00 Lovenox - SQ BID GEOVANI Furosemide 20 mg 08/23/19 10:00 08/24/19 09:51 Lasix - PO 20 mg DAILY [facility]ANI Administration Piperacillin Sod/Tazobactam 50 mls @ 100 mls/hr 08/22/19 18:00 08/24/19 17:02 Sod 3.375 gm/ Dextrose IVPB 100 mls/hr Q8H-IV GE[facility] Administration Protocol Lactobacillus Acidophilus 1 tab 08/23/19 22:00 08/24/19 09:51 Bacid - PO 1 tab BID GEOVANI Administration Non-Formulary Medication 6 mg 08/22/19 20:00 08/23/19 20:56 Ropinirole Hcl [Requip Xl] PO 6 mg 2000 GEOVANI Administration Potassium Chloride 10 meq 08/23/19 10:00 08/24/19 09:51 K-Dur - PO 10 meq DAILY GE[facility]ANI Administration Home Medications Medication Instructions Recorded Aspirin [Aspir 81] 81 mg PO DAILY 12/09/12 Calcium Carbonate [Tums Ultra] 400 mg PO HS 12/09/12 Ropinirole HCl [Requip Xl] 6 mg PO HS tablet 07/09/15 [id number] 1 each PO QID tablet 08/06/15 [Stalevo 100 -] Furosemide [Lasix] 20 mg PO DAILY 04/13/17 Amantadine HCl [Amantadine] 100 mg PO DAILY 10/22/[address] CT [address] lower extremity Ct with contrast: Extensive sq edema with poorly defined fluid collection anteriorly within the mid calf suspecious for a small abscess. ASSESSMENT AND PLAN: THis is a 78yof with Pmhx of Parkinson's disease and chronic right lower extremity lymphedema, admitted for RLE cellulitis. 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
[2019-08-24] MEDS: ROPINIROLE HCL 6 MG PO SCH (20:20)
[2019-08-24] MEDS: ENOXAPARIN NA (PORCINE) 60 MG/0.6 ML DISP.SYRIN SQ SCH (21:24)
[2019-08-25] MEDS: PIPERACILLIN/TAZOB 3.375 GM 3.375 GM in DEXTROSE 5%-WATER - 50 ML IVPB SCH ×3 (01:55→17:05)
[2019-08-25] MEDS: CARBIDOP 25MG/LEVODOPA 100MG/ENTACAPONE 200MG TABLET PO SCH ×4 (08:02→20:33)
[2019-08-25 08:17] LABS: BASO % 0.7 % (0-2.0); EOS % 2.4 % (0-4.5); HEMATOCRIT 33.7 % (32.4-45.2); HEMOGLOBIN 11.4 GM/dL (10.7-15.3); LYMPH % 27.7 % (8-40); MCH 32.3 pg (25.7-33.7); MCHC 33.7 g/dl (32.0-36.0); MEAN CELL VOLUME 95.9 fl (80-96); MEAN PLT VOLUME 8.6 fl (7.5-11.1); MONO % 10.8 % (3.8-10.2); NEUT % 58.4 % (42.8-82.8); PLATELET COUNT 165 K/MM3 (134-434); RBC 3.51 M/mm3 (3.60-5.2); RDW 13.8 % (11.6-15.6); WHITE BLOOD COUNT 4.4 K/mm3 (4.0-10.0)
[2019-08-25 08:46] LABS: BLOOD UREA NITROGEN 13.7 mg/dL (7-18); CALCIUM 8.7 mg/dL (8.5-10.1); CREATININE 0.7 mg/dL (0.55-1.3); MAGNESIUM 2.6 mg/dL (1.8-2.4); PHOSPHOROUS 2.3 mg/dL (2.5-4.9); POTASSIUM 3.6 mmol/L (3.5-5.1)
[2019-08-25] MEDS: POTASSIUM CHLORIDE TABS 10 MEQ TABLET.ER (FP) PO SCH (09:35)
[2019-08-25] MEDS: LACTOBACILLUS ACIDOPHILUS 1 TABLET PO SCH ×2 (09:35→21:27)
[2019-08-25] MEDS: AMANTADINE HCL 100 MG TABLET PO SCH (09:35)
[2019-08-25] MEDS: FUROSEMIDE 20 MG TABLET (FP) PO SCH (09:35)
[2019-08-25] MEDS: ASPIRIN COATED 81 MG TABLET.EC PO SCH (09:35)
[2019-08-25] MEDS: ENOXAPARIN NA (PORCINE) 60 MG/0.6 ML DISP.SYRIN SQ SCH ×2 (09:38→21:27)
[2019-08-25] MEDS ORDERED: CHOLESTYRAMINE/SUCROSE 4 GM PACKET PO SCH (12:30)
--- NOTE | 2019-08-25 14:28 | PN ---
Physical Exam: SUBJECTIVE: Patient seen and examined bedside. In no acute distress. Patient complaining of consistent diarrhea throughout the night. OBJECTIVE: Vital Signs Period Temp Pulse Resp BP Sys/Dodson Pulse Ox Last 24 Hr 97.8 F-98.9 F 60-80 18-20 98-148/47-70 97-98 GENERAL: The patient is awake, alert, and fully oriented, in no acute distress. LUNGS: CTA BL HEART: Regular rate and rhythm, S1, S2 ABDOMEN: Soft, nontender, nondistended EXTREMITIES: RLE I&D site currently packed with serous fluids draining, non purulent, non bloody. Laboratory Results - last 24 hr 08/25/19 08/25/19 06:59 06:59 WBC 4.4 RBC 3.51 L Hgb 11.4 Hct 33.7 MCV 95.9 MCH 32.3 MCHC 33.7 RDW 13.8 Plt Count 165 MPV 8.6 Absolute Neuts (auto) 2.5 Neutrophils % 58.4 Lymphocytes % 27.7 Monocytes % 10.8 H Eosinophils % 2.4 Basophils % 0.7 Nucleated RBC % 0 D-Dimer 1047 H Sodium 142 Potassium 3.6 Chloride 115 H Carbon Dioxide 25 Anion Gap 2 L BUN 13.7 Creatinine 0.7 Est GFR (CKD-EPI)AfAm 96.18 Est GFR (CKD-EPI)NonAf 82.99 Random Glucose 87 Calcium 8.7 Phosphorus 2.3 L Magnesium 2.6 H Ferritin 61.9 LD Total 192 C-Reactive Protein 2.0 H Active Medications Generic Name Dose Route Start Last Admin Trade Name Freq PRN Reason Stop Dose Admin Acetaminophen 650 mg 08/22/19 15:18 Tylenol - PO Q4H PRN PAIN LEVEL 1 - 3 Amantadine HCl 100 mg 08/23/19 10:00 08/25/19 09:35 Symmetrel - PO 100 mg DAILY GEOVANI Administration Aspirin 81 mg 08/23/19 10:00 08/25/19 09:35 Ecotrin - PO 81 mg DAILY GEOVANI Administration Carbidopa/Levodopa/Entacapone 1 tab 08/22/19 16:00 08/25/19 11:59 Stalevo 100 - PO 1 tab 0800,1200,1600,2000 GEOVANI Administration Cholestyramine Resin 4 gm 08/25/19 12:33 Questran Light Packet - PO BID GEOVANI Enoxaparin Sodium 50 mg 08/24/19 22:00 08/25/19 09:38 Lovenox - SQ 50 mg BID GEOVANI Administration Furosemide 20 mg 08/23/19 10:00 08/25/19 09:35 Lasix - PO Not Given DAILY GEOVANI Piperacillin Sod/Tazobactam 50 mls @ 100 mls/hr 08/22/19 18:00 08/25/19 09:38 Sod 3.375 gm/ Dextrose IVPB 100 mls/hr Q8H-IV GEOVANI Administration Protocol Lactobacillus Acidophilus 1 tab 08/23/19 22:00 08/25/19 09:35 Bacid - PO 1 tab BID GEOVANI Administration Non-Formulary Medication 6 mg 08/22/19 20:00 08/24/19 20:20 Ropinirole Hcl [Requip Xl] PO 6 mg 2000 GEOVANI Administration Potassium Chloride 10 meq 08/23/19 10:00 08/25/19 09:35 K-Dur - PO 10 meq DAILY GEOVANI Administration ASSESSMENT/PLAN: 78yF with PMH Parkinson's disease presented with leg erythema, swelling and drainage, was admitted with cellulites that previous failed PO antibiotic treatment. Cellulits likely in s/o venous stasis - clindamycin 600 started 08/19 - d/c on 08/21 - Started Piperacillin Tazobactam 3.375 mg, on day 6 - Surgery performed I&D 08/22 >> cultures came back + for Serratia Marcescens & Coagulas negative staphylococci - follow WBC trend/fever curve - cont home lasix - When d/c home start saline irrigation with wet to dry dressing followed by keflex as per surgery's instructions - f/u with ID on length of IV antibiotics and if/when patient can switch over to PO antibiotics Parkinson's disease - cont home meds Hospital Onset Diarrhea - C Diff negative - increased probiotics - continue to monitor electrolytes and patient for signs of dehydration or imbalance - encourage increase PO water intake - started cholestyramine 4 gm po BID for diarrhea Covid-19 Positive (Asymptomatic) - monitor patient O2 sat regularly - inflammatory markers continuing to be monitored - trending down PPX - heparin 5000u SC increased to TID - no indication for GI PPX FEN - Enourages more PO intake - regular diet as tolerated - FALL RISK - needs assistance to get out of bed - continue PT Dispo: This patient currently requires inpatient management of her condition. Visit type - Emergency Visit Emergency Visit: Yes ED Registration Date: 08/19/19 Care time: The patient presented to the Emergency Department on the above date and was hospitalized for further evaluation of their emergent condition. - New Patient This patient is new to me today: Yes Date on this admission: 08/30/19 - Critical Care Critical Care patient: No - Discharge Referral Referred to [facility] Med P.C.: No ATTENDING PHYSICIAN STATEMENT I saw and evaluated the patient. I reviewed the resident's note and discussed the case with the resident. I agree with the resident's findings and plan as documented. SUBJECTIVE: OBJECTIVE: ASSESSMENT AND PLAN:
--- NOTE | 2019-08-25 17:41 | PN ---
Teaching Attending Note Name of Resident: Autumn Hsieh ATTENDING PHYSICIAN STATEMENT I saw and evaluated the patient. I reviewed the resident's note and discussed the case with the resident. I agree with the resident's findings and plan as documented. SUBJECTIVE: Patient is comfortable with no acute distress. OBJECTIVE: Vital Signs Temperature 98.9 F 08/25/19 14:04 Pulse Rate 60 08/25/19 14:04 Respiratory Rate 18 08/25/19 09:33 Blood Pressure 108/51 L 08/25/19 14:04 O2 Sat by Pulse Oximetry (%) 98 08/25/19 09:35 PE: per resident's note CBCD WBC 4.4 K/mm3 (4.0-10.0) 08/25/19 06:59 RBC 3.51 M/mm3 (3.60-5.2) L 08/25/19 06:59 Hgb 11.4 GM/dL (10.7-15.3) 08/25/19 06:59 Hct 33.7 % (32.4-45.2) 08/25/19 06:59 MCV 95.9 fl (80-96) 08/25/19 06:59 MCHC 33.7 g/dl (32.0-36.0) 08/25/19 06:59 RDW 13.8 % (11.6-15.6) 08/25/19 06:59 Plt Count 165 K/MM3 (134-434) 08/25/19 06:59 MPV 8.6 fl (7.5-11.1) 08/25/19 06:59 CMP Sodium 142 mmol/L (136-145) 08/25/19 06:59 Potassium 3.6 mmol/L (3.5-5.1) 08/25/19 06:59 Chloride 115 mmol/L (98-107) H 08/25/19 06:59 Carbon Dioxide 25 mmol/L (21-32) 08/25/19 06:59 Anion Gap 2 MMOL/L (8-16) L 08/25/19 06:59 BUN 13.7 mg/dL (7-18) 08/25/19 06:59 Creatinine 0.7 mg/dL (0.55-1.3) 08/25/19 06:59 Random Glucose 87 mg/dL (74-106) 08/25/19 06:59 Calcium 8.7 mg/dL (8.5-10.1) 08/25/19 06:59 Total Bilirubin 1.0 mg/dl (0.2-1) 08/19/19 17:49 AST 16 U/L (15-37) 08/19/19 17:49 ALT 6 U/L (13-61) L 08/19/19 17:49 Alkaline Phosphatase 49 U/L (45-117) 08/19/19 17:49 Total Protein 5.7 g/dl (6.4-8.2) L 08/19/19 17:49 Albumin 3.6 g/dl (3.4-5.0) 08/19/19 17:49 Current Medications Generic Name Dose Route Start Last Admin Trade Name Freq PRN Reason Stop Dose Admin Acetaminophen 650 mg 08/22/19 15:18 Tylenol - PO Q4H PRN PAIN LEVEL 1 - 3 Amantadine HCl 100 mg 08/23/19 10:00 08/25/19 09:35 Symmetrel - PO 100 mg DAILY GEOVANI Administration Aspirin 81 mg 08/23/19 10:00 08/25/19 09:35 Ecotrin - PO 81 mg DAILY GEOVANI Administration Carbidopa/Levodopa/Entacapone 1 tab 08/22/19 16:00 08/25/19 16:05 Stalevo 100 - PO 1 tab 0800,1200,1600,2000 GEOVANI Administration Cholestyramine Resin 4 gm 08/25/19 12:33 Questran Light Packet - PO BID GEOVANI Enoxaparin Sodium 50 mg 08/24/19 22:00 08/25/19 09:38 Lovenox - SQ 50 mg BID GEOVANI Administration Furosemide 20 mg 08/23/19 10:00 08/25/19 09:35 Lasix - PO Not Given DAILY GOEVANI Piperacillin Sod/Tazobactam 50 mls @ 100 mls/hr 08/22/19 18:00 08/25/19 17:05 Sod 3.375 gm/ Dextrose IVPB 100 mls/hr Q8H-IV GEOVANI Administration Protocol Lactobacillus Acidophilus 1 tab 08/23/19 22:00 08/25/19 09:35 Bacid - PO 1 tab BID GEOVANI Administration Non-Formulary Medication 6 mg 08/22/19 20:00 08/24/19 20:20 Ropinirole Hcl [Requip Xl] PO 6 mg 2000 GEOVANI Administration Potassium Chloride 10 meq 08/23/19 10:00 08/25/19 09:35 K-Dur - PO 10 meq DAILY GEOVANI Administration Home Medications Medication Instructions Recorded Aspirin [Aspir 81] 81 mg PO DAILY 12/09/12 Calcium Carbonate [Tums Ultra] 400 mg PO HS 12/09/12 Ropinirole HCl [Requip Xl] 6 mg PO HS tablet 07/09/15 [id number]/[id number] 1 each PO QID tablet 08/06/15 [Stalevo 100 -] Furosemide [Lasix] 20 mg PO DAILY 04/13/17 Amantadine HCl [Amantadine] 100 mg PO DAILY 10/22/18 Laboratory Tests 08/19/19 08/19/19 08/20/19 17:49 17:55 06:10 Lymphocytes % 12.6 15.0 D-Dimer Ferritin LD Total C-Reactive Protein COVID-19 (NICK) Detected H 08/21/19 08/23/19 08/24/19 06:59 06:45 06:00 Lymphocytes % 20.4 31.4 D-Dimer Ferritin 75.4 LD Total 205 C-Reactive Protein 2.9 H COVID-19 (NICK) 08/24/19 08/25/19 08/25/19 08:43 06:59 06:59 Lymphocytes % D-Dimer 1231 H 1047 H Ferritin 61.9 LD Total 192 C-Reactive Protein 2.0 H COVID-19 (NICK) CT of lower extremity Ct with contrast: Extensive sq edema with poorly defined fluid collection anteriorly within the mid calf suspecious for a small abscess. ASSESSMENT AND PLAN: THis is a 78yof with Pmhx of Parkinson's disease and chronic right lower extremity lymphedema, admitted for RLE cellulitis. 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
--- NOTE | 2019-08-25 19:31 | PN ---
Progress Note, Physician History of Present Illness: Pt is alert, without distress. RLE feels better, less erythema. COVID +, without distress. Has no complaints. Diarrhea resolved. - Current Medication List Current Medications: Active Medications Acetaminophen (Tylenol -) 650 mg PO Q4H PRN PRN Reason: PAIN LEVEL 1 - 3 Amantadine HCl (Symmetrel -) 100 mg PO DAILY [facility] Last Admin: 08/25/19 09:35 Dose: 100 mg Documented by: Aspirin (Ecotrin -) 81 mg PO DAILY [facility] Last Admin: 08/25/19 09:35 Dose: 81 mg Documented by: Carbidopa/Levodopa/Entacapone (Stalevo 100 -) 1 tab PO 0800,1200,1600,1999 [facility] Last Admin: 08/25/19 16:05 Dose: 1 tab Documented by: Cholestyramine Resin (Questran Light Packet -) 4 gm PO BID [facility] Enoxaparin Sodium (Lovenox -) 50 mg SQ BID [facility] Last Admin: 08/25/19 09:38 Dose: 50 mg Documented by: Furosemide (Lasix -) 20 mg PO DAILY [facility] Last Admin: 08/25/19 09:35 Dose: Not Given Documented by: Piperacillin Sod/Tazobactam (Sod 3.375 gm/ Dextrose) 50 mls @ 100 mls/hr IVPB Q8H-IV GEOVANI; Protocol Last Admin: 08/25/19 17:05 Dose: 100 mls/hr Documented by: Lactobacillus Acidophilus (Bacid -) 1 tab PO BID [facility] Last Admin: 08/25/19 09:35 Dose: 1 tab Documented by: Non-Formulary Medication (Ropinirole Hcl [Requip Xl]) 6 mg PO 1999 [facility] Last Admin: 08/24/19 20:20 Dose: 6 mg Documented by: Potassium Chloride (K-Dur -) 10 meq PO DAILY [facility] Last Admin: 08/25/19 09:35 Dose: 10 meq Documented by: - Objective Vital Signs: Vital Signs Temperature 98.3 F 08/25/19 18:00 Pulse Rate 70 08/25/19 18:00 Respiratory Rate 18 08/25/19 18:00 Blood Pressure 147/71 08/25/19 18:00 O2 Sat by Pulse Oximetry (%) 98 08/25/19 09:35 Constitutional: Yes: No Distress, Calm Eyes: Yes: Conjunctiva Clear Cardiovascular: Yes: Regular Rate and Rhythm Respiratory: Yes: CTA Bilaterally Gastrointestinal: Yes: Normal Bowel Sounds, Soft Wound/Incision: Yes: Dressing Dry and Intact (RLE with less erythema/edema, RLE lymphadenopathy) Neurological: Yes: Alert, Oriented Labs: CBC, BMP 08/25/19 06:59 08/25/19 06:59 INR, PTT INR 0.91 (0.83-1.09) 08/23/19 06:45 Laboratory Last Values WBC 4.4 K/mm3 (4.0-10.0) 08/25/19 06:59 RBC 3.51 M/mm3 (3.60-5.2) L 08/25/19 06:59 Hgb 11.4 GM/dL (10.7-15.3) 08/25/19 06:59 Hct 33.7 % (32.4-45.2) 08/25/19 06:59 MCV 95.9 fl (80-96) 08/25/19 06:59 MCH 32.3 pg (25.7-33.7) 08/25/19 06:59 MCHC 33.7 g/dl (32.0-36.0) 08/25/19 06:59 RDW 13.8 % (11.6-15.6) 08/25/19 06:59 Plt Count 165 K/MM3 (134-434) 08/25/19 06:59 MPV 8.6 fl (7.5-11.1) 08/25/19 06:59 Absolute Neuts (auto) 2.5 K/mm3 (1.5-8.0) 08/25/19 06:59 Neutrophils % 58.4 % (42.8-82.8) 08/25/19 06:59 Lymphocytes % 27.7 % (8-40) 08/25/19 06:59 Monocytes % 10.8 % (3.8-10.2) H 08/25/19 06:59 Eosinophils % 2.4 % (0-4.5) 08/25/19 06:59 Basophils % 0.7 % (0-2.0) 08/25/19 06:59 Nucleated RBC % 0 % (0-0) 08/25/19 06:59 PT with INR 10.70 SEC (9.7-13.0) 08/23/19 06:45 INR 0.91 (0.83-1.09) 08/23/19 06:45 PTT (Actin FS) 28.5 SECONDS (25.2-36.5) 08/23/19 06:45 D-Dimer 1047 ng/ml (0-500) H 08/25/19 06:59 Sodium 142 mmol/L (136-145) 08/25/19 06:59 Potassium 3.6 mmol/L (3.5-5.1) 08/25/19 06:59 Chloride 115 mmol/L (98-107) H 08/25/19 06:59 Carbon Dioxide 25 mmol/L (21-32) 08/25/19 06:59 Anion Gap 2 MMOL/L (8-16) L 08/25/19 06:59 BUN 13.7 mg/dL (7-18) 08/25/19 06:59 Creatinine 0.7 mg/dL (0.55-1.3) 08/25/19 06:59 Est GFR (CKD-EPI)AfAm 96.18 08/25/19 06:59 Est GFR (CKD-EPI)NonAf 82.99 08/25/19 06:59 Random Glucose 87 mg/dL (74-106) 08/25/19 06:59 Calcium 8.7 mg/dL (8.5-10.1) 08/25/19 06:59 Phosphorus 2.3 mg/dL (2.5-4.9) L 08/25/19 06:59 Magnesium 2.6 mg/dL (1.8-2.4) H 08/25/19 06:59 Iron 15 ug/dL (50-175) L 08/20/19 13:30 TIBC 301 ug/dL (250-450) 08/20/19 13:30 Iron Saturation 4 % (17.5-39) L 08/20/19 13:30 Unsaturated IBC 286 ug/dL (200-275) H 08/20/19 13:30 Ferritin 61.9 ng/ml (8-388) 08/25/19 06:59 Total Bilirubin 1.0 mg/dl (0.2-1) 08/19/19 17:49 AST 16 U/L (15-37) 08/19/19 17:49 ALT 6 U/L (13-61) L 08/19/19 17:49 Alkaline Phosphatase 49 U/L (45-117) 08/19/19 17:49 LD Total 192 U/L (84-246) 08/25/19 06:59 C-Reactive Protein 2.0 MG/DL (0.00-0.3) H 08/25/19 06:59 Total Protein 5.7 g/dl (6.4-8.2) L 08/19/19 17:49 Albumin 3.6 g/dl (3.4-5.0) 08/19/19 17:49 Vitamin B12 397 pg/ml (193-986) 08/20/19 13:30 Vitamin B12 Cancelled 08/20/19 13:30 Serum Folate 14 ng/mL (3.1-17.5) 08/20/19 13:30 COVID-19 (NICK) Detected (Not Detected) H 08/19/19 17:55 Microbiology 08/23/19 13:00 Abscess Gram Stain - Final 08/23/19 13:00 Abscess Wound Culture - Preliminary Non Lactose Fermenting Gnb 08/19/19 18:00 Blood - Peripheral Venous Blood Culture - Final NO GROWTH AFTER 5 DAYS INCUBATION 08/19/19 17:49 Blood - Peripheral Venous Blood Culture - Final NO GROWTH AFTER 5 DAYS INCUBATION 08/23/19 20:00 Stool Clostridioides difficile Antigen - Final 08/23/19 20:00 Stool Clostridioides difficile Toxin Assay - Final 08/19/19 17:56 Leg - Right Lower Gram Stain - Final 08/19/19 17:56 Leg - Right Lower Wound Culture - Final Serratia Marcescens Staphylococcus Coagulase Neg - ....Imaging Cat Scan: Report Reviewed Problem List - Problems (1) Abscess of right lower extremity Code(s): L02.415 - CUTANEOUS ABSCESS OF RIGHT LOWER LIMB (2) Cellulitis Code(s): L03.90 - CELLULITIS, UNSPECIFIED (3) Leg wound, right Code(s): S81.801A - UNSPECIFIED OPEN WOUND, RIGHT LOWER LEG, INITIAL ENCOUNTER Assessment/Plan RLE cellulitis/wound infection RLE abscess RLE lymphedema Parkinson's COVID + -- wound cultures noted, abscess culture isolate pending -- RLE erythema improving -- continue Zosyn for now -- Diarrhea resolved, CDT negative
[2019-08-25] MEDS: ROPINIROLE HCL 6 MG PO SCH (20:33)
[2019-08-25] MEDS: CHOLESTYRAMINE/ASPARTAME 4 GM PACKET PO SCH (21:26)
[2019-08-26] MEDS: PIPERACILLIN/TAZOB 3.375 GM 3.375 GM in DEXTROSE 5%-WATER - 50 ML IVPB SCH ×3 (02:39→17:18)
[2019-08-26] MEDS: CARBIDOP 25MG/LEVODOPA 100MG/ENTACAPONE 200MG TABLET PO SCH ×4 (08:23→20:50)
[2019-08-26 09:48] LABS: BASO % 0.8 % (0-2.0); EOS % 2.1 % (0-4.5); HEMATOCRIT 35.6 % (32.4-45.2); HEMOGLOBIN 11.9 GM/dL (10.7-15.3); LYMPH % 30.2 % (8-40); MCH 32.3 pg (25.7-33.7); MCHC 33.4 g/dl (32.0-36.0); MEAN CELL VOLUME 96.5 fl (80-96); MEAN PLT VOLUME 8.4 fl (7.5-11.1); NEUT % 57.9 % (42.8-82.8); PLATELET COUNT 177 K/MM3 (134-434); RBC 3.69 M/mm3 (3.60-5.2); WHITE BLOOD COUNT 4.4 K/mm3 (4.0-10.0)
[2019-08-26 10:20] LABS: BLOOD UREA NITROGEN 12.4 mg/dL (7-18); CALCIUM 8.7 mg/dL (8.5-10.1); CREATININE 0.8 mg/dL (0.55-1.3); MAGNESIUM 2.6 mg/dL (1.8-2.4); PHOSPHOROUS 2.5 mg/dL (2.5-4.9); POTASSIUM 3.6 mmol/L (3.5-5.1)
[2019-08-26] MEDS: ENOXAPARIN NA (PORCINE) 60 MG/0.6 ML DISP.SYRIN SQ SCH ×2 (10:21→22:12)
[2019-08-26] MEDS: ASPIRIN COATED 81 MG TABLET.EC PO SCH (10:21)
[2019-08-26] MEDS: LACTOBACILLUS ACIDOPHILUS 1 TABLET PO SCH ×2 (10:21→22:12)
[2019-08-26] MEDS: POTASSIUM CHLORIDE TABS 10 MEQ TABLET.ER (FP) PO SCH (10:22)
[2019-08-26] MEDS: FUROSEMIDE 20 MG TABLET (FP) PO SCH (10:23)
[2019-08-26] MEDS: AMANTADINE HCL 100 MG TABLET PO SCH (10:24)
[2019-08-26] MEDS: CHOLESTYRAMINE/ASPARTAME 4 GM PACKET PO SCH ×2 (10:24→22:12)
--- NOTE | 2019-08-26 12:40 | PN ---
Progress Note (short form) - Note Progress Note: Patient is comfortable , wants to go home. Vital Signs Temperature 98.1 F 08/26/19 05:10 Pulse Rate 65 08/26/19 05:10 Respiratory Rate 20 08/26/19 05:10 Blood Pressure 133/57 L 08/26/19 05:10 O2 Sat by Pulse Oximetry (%) 96 08/25/19 21:00 GENERAL: The patient is awake, alert, and fully oriented, in no acute distress. HEAD: Normal with no signs of trauma. EYES: PERRL, extraocular movements intact, sclera anicteric, conjunctiva clear. ENT: Ears normal, oropharynx clear without exudates, moist mucous membranes. NECK: Trachea midline, full range of motion, supple. LUNGS: Breath sounds equal, clear to auscultation bilaterally, no wheezes, no crackles, no accessory muscle use. HEART: Regular rate and rhythm, S1, S2 without murmur, rub or gallop. ABDOMEN: Soft, nontender, nondistended, normoactive bowel sounds, no guarding, no rebound, no hepatosplenomegaly, no masses. EXTREMITIES: 2+ pulses, warm, well-perfused, RLE: open wound . NEUROLOGICAL: Cranial nerves II through XII grossly intact. Normal speech, gait not observed. PSYCH: Normal mood, normal affect. SKIN: Warm, dry, normal turgor, no rashes or lesions noted CBCD WBC 4.4 K/mm3 (4.0-10.0) 08/26/19 07:45 RBC 3.69 M/mm3 (3.60-5.2) 08/26/19 07:45 Hgb 11.9 GM/dL (10.7-15.3) 08/26/19 07:45 Hct 35.6 % (32.4-45.2) 08/26/19 07:45 MCV 96.5 fl (80-96) H 08/26/19 07:45 MCHC 33.4 g/dl (32.0-36.0) 08/26/19 07:45 RDW 14.0 % (11.6-15.6) 08/26/19 07:45 Plt Count 177 K/MM3 (134-434) 08/26/19 07:45 MPV 8.4 fl (7.5-11.1) 08/26/19 07:45 CMP Sodium 145 mmol/L (136-145) 08/26/19 08:30 Potassium 3.6 mmol/L (3.5-5.1) 08/26/19 08:30 Chloride 118 mmol/L (98-107) H 08/26/19 08:30 Carbon Dioxide 25 mmol/L (21-32) 08/26/19 08:30 Anion Gap 1 MMOL/L (8-16) L 08/26/19 08:30 BUN 12.4 mg/dL (7-18) 08/26/19 08:30 Creatinine 0.8 mg/dL (0.55-1.3) 08/26/19 08:30 Random Glucose 99 mg/dL (74-106) 08/26/19 08:30 Calcium 8.7 mg/dL (8.5-10.1) 08/26/19 08:30 Total Bilirubin 1.0 mg/dl (0.2-1) 08/19/19 17:49 AST 16 U/L (15-37) 08/19/19 17:49 ALT 6 U/L (13-61) L 08/19/19 17:49 Alkaline Phosphatase 49 U/L (45-117) 08/19/19 17:49 Total Protein 5.7 g/dl (6.4-8.2) L 08/19/19 17:49 Albumin 3.6 g/dl (3.4-5.0) 08/19/19 17:49 Current Medications Generic Name Dose Route Start Last Admin Trade Name Freq PRN Reason Stop Dose Admin Acetaminophen 650 mg 08/22/19 15:18 Tylenol - PO Q4H PRN PAIN LEVEL 1 - 3 Amantadine HCl 100 mg 08/23/19 10:00 08/26/19 10:24 Symmetrel - PO 100 mg DAILY GEOVANI Administration Aspirin 81 mg 08/23/19 10:00 08/26/19 10:21 Ecotrin - PO 81 mg DAILY GEOVANI Administration Carbidopa/Levodopa/Entacapone 1 tab 08/22/19 16:00 08/26/19 12:14 Stalevo 100 - PO 1 tab 0800,1200,1600,2000 [facility]ANI Administration Cholestyramine Resin 4 gm 08/25/19 12:33 08/26/19 10:24 Questran Light Packet - PO 4 gm BID GEOVANI Administration Enoxaparin Sodium 50 mg 08/24/19 22:00 08/26/19 10:21 Lovenox - SQ 50 mg BID GEOVANI Administration Furosemide 20 mg 08/23/19 10:00 08/26/19 10:23 Lasix - PO 20 mg DAILY GEOVANI Administration Piperacillin Sod/Tazobactam 50 mls @ 100 mls/hr 08/22/19 18:00 08/26/19 10:09 Sod 3.375 gm/ Dextrose IVPB 100 mls/hr Q8H-IV GEOVANI Administration Protocol Lactobacillus Acidophilus 1 tab 08/23/19 22:00 08/26/19 10:21 Bacid - PO 1 tab BID GEOVANI Administration Non-Formulary Medication 6 mg 08/22/19 20:00 08/25/19 20:33 Ropinirole Hcl [Requip Xl] PO 6 mg 2000 GEOVANI Administration Potassium Chloride 10 meq 08/23/19 10:00 08/26/19 10:22 K-Dur - PO 10 meq DAILY [facility] Administration Home Medications Medication Instructions Recorded Aspirin [Aspir 81] 81 mg PO DAILY 12/09/12 Calcium Carbonate [Tums Ultra] 400 mg PO HS 12/09/12 Ropinirole HCl [Requip Xl] 6 mg PO HS tablet 07/09/15 C-Dopa25/l-Dnox108/[id number] 1 each PO QID tablet 08/06/15 [Stalevo 100 -] Furosemide [Lasix] 20 mg PO DAILY 04/13/17 Amantadine HCl [Amantadine] 100 mg PO DAILY 10/22/[address] lower extremity Ct with contrast: Extensive sq edema with poorly defined fluid collection anteriorly within the mid calf suspecious for a small abscess. ASSESSMENT AND PLAN: THis is a 78yof with Pmhx of Parkinson's disease and chronic right lower extremity lymphedema, admitted for RLE cellulitis. 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 - New Patient This patient is new to me today: No - Critical Care Critical Care patient: No - Discharge Referral Referred to [facility] Med P.C.: No
--- NOTE | 2019-08-26 15:52 | PN ---
Progress Note, Physician History of Present Illness: No new events. LE less erythema/edema. No specific complaints. - Current Medication List Current Medications: Active Medications Acetaminophen (Tylenol -) 650 mg PO Q4H PRN PRN Reason: PAIN LEVEL 1 - 3 Amantadine HCl (Symmetrel -) 100 mg PO DAILY [facility] Last Admin: 08/26/19 10:24 Dose: 100 mg Documented by: Aspirin (Ecotrin -) 81 mg PO DAILY [facility] Last Admin: 08/26/19 10:21 Dose: 81 mg Documented by: Carbidopa/Levodopa/Entacapone (Stalevo 100 -) 1 tab PO 0800,1200,1600,1999 [facility] Last Admin: 08/26/19 12:14 Dose: 1 tab Documented by: Cholestyramine Resin (Questran Light Packet -) 4 gm PO BID [facility] Last Admin: 08/26/19 10:24 Dose: 4 gm Documented by: Enoxaparin Sodium (Lovenox -) 50 mg SQ BID [facility] Last Admin: 08/26/19 10:21 Dose: 50 mg Documented by: Furosemide (Lasix -) 20 mg PO DAILY [facility] Last Admin: 08/26/19 10:23 Dose: 20 mg Documented by: Piperacillin Sod/Tazobactam (Sod 3.375 gm/ Dextrose) 50 mls @ 100 mls/hr IVPB Q8H-IV [facility]; Protocol Last Admin: 08/26/19 10:09 Dose: 100 mls/hr Documented by: Lactobacillus Acidophilus (Bacid -) 1 tab PO BID [facility] Last Admin: 08/26/19 10:21 Dose: 1 tab Documented by: Non-Formulary Medication (Ropinirole Hcl [Requip Xl]) 6 mg PO 1999 [facility] Last Admin: 08/25/19 20:33 Dose: 6 mg Documented by: Potassium Chloride (K-Dur -) 10 meq PO DAILY [facility] Last Admin: 08/26/19 10:22 Dose: 10 meq Documented by: - Objective Vital Signs: Vital Signs Temperature 98.3 F 08/26/19 13:00 Pulse Rate 74 08/26/19 13:00 Respiratory Rate 20 08/26/19 13:00 Blood Pressure 113/62 08/26/19 13:00 O2 Sat by Pulse Oximetry (%) 96 08/25/19 21:00 Constitutional: Yes: No Distress, Calm Cardiovascular: Yes: Regular Rate and Rhythm Respiratory: Yes: CTA Bilaterally Gastrointestinal: Yes: Normal Bowel Sounds, Soft Genitourinary: Yes: WNL Wound/Incision: Yes: Dressing Dry and Intact Neurological: Yes: Alert, Oriented Labs: CBC, BMP 08/26/19 07:45 08/26/19 08:30 INR, PTT INR 0.91 (0.83-1.09) 08/23/19 06:45 Laboratory Last Values WBC 4.4 K/mm3 (4.0-10.0) 08/26/19 07:45 RBC 3.69 M/mm3 (3.60-5.2) 08/26/19 07:45 Hgb 11.9 GM/dL (10.7-15.3) 08/26/19 07:45 Hct 35.6 % (32.4-45.2) 08/26/19 07:45 MCV 96.5 fl (80-96) H 08/26/19 07:45 MCH 32.3 pg (25.7-33.7) 08/26/19 07:45 MCHC 33.4 g/dl (32.0-36.0) 08/26/19 07:45 RDW 14.0 % (11.6-15.6) 08/26/19 07:45 Plt Count 177 K/MM3 (134-434) 08/26/19 07:45 MPV 8.4 fl (7.5-11.1) 08/26/19 07:45 Absolute Neuts (auto) 2.5 K/mm3 (1.5-8.0) 08/26/19 07:45 Neutrophils % 57.9 % (42.8-82.8) 08/26/19 07:45 Lymphocytes % 30.2 % (8-40) 08/26/19 07:45 Monocytes % 9.0 % (3.8-10.2) 08/26/19 07:45 Eosinophils % 2.1 % (0-4.5) 08/26/19 07:45 Basophils % 0.8 % (0-2.0) 08/26/19 07:45 Nucleated RBC % 0 % (0-0) 08/26/19 07:45 PT with INR 10.70 SEC (9.7-13.0) 08/23/19 06:45 INR 0.91 (0.83-1.09) 08/23/19 06:45 PTT (Actin FS) 28.5 SECONDS (25.2-36.5) 08/23/19 06:45 D-Dimer 1052 ng/ml (0-500) H 08/26/19 08:30 Sodium 145 mmol/L (136-145) 08/26/19 08:30 Potassium 3.6 mmol/L (3.5-5.1) 08/26/19 08:30 Chloride 118 mmol/L (98-107) H 08/26/19 08:30 Carbon Dioxide 25 mmol/L (21-32) 08/26/19 08:30 Anion Gap 1 MMOL/L (8-16) L 08/26/19 08:30 BUN 12.4 mg/dL (7-18) 08/26/19 08:30 Creatinine 0.8 mg/dL (0.55-1.3) 08/26/19 08:30 Est GFR (CKD-EPI)AfAm 81.84 08/26/19 08:30 Est GFR (CKD-EPI)NonAf 70.61 08/26/19 08:30 Random Glucose 99 mg/dL (74-106) 08/26/19 08:30 Calcium 8.7 mg/dL (8.5-10.1) 08/26/19 08:30 Phosphorus 2.5 mg/dL (2.5-4.9) 08/26/19 08:30 Magnesium 2.6 mg/dL (1.8-2.4) H 08/26/19 08:30 Iron 15 ug/dL (50-175) L 08/20/19 13:30 TIBC 301 ug/dL (250-450) 08/20/19 13:30 Iron Saturation 4 % (17.5-39) L 08/20/19 13:30 Unsaturated IBC 286 ug/dL (200-275) H 08/20/19 13:30 Ferritin 49.2 ng/ml (8-388) 08/26/19 08:30 Total Bilirubin 1.0 mg/dl (0.2-1) 08/19/19 17:49 AST 16 U/L (15-37) 08/19/19 17:49 ALT 6 U/L (13-61) L 08/19/19 17:49 Alkaline Phosphatase 49 U/L (45-117) 08/19/19 17:49 LD Total 201 U/L (84-246) 08/26/19 08:30 C-Reactive Protein 1.5 MG/DL (0.00-0.3) H 08/26/19 08:30 Total Protein 5.7 g/dl (6.4-8.2) L 08/19/19 17:49 Albumin 3.6 g/dl (3.4-5.0) 08/19/19 17:49 Vitamin B12 397 pg/ml (193-986) 08/20/19 13:30 Vitamin B12 Cancelled 08/20/19 13:30 Serum Folate 14 ng/mL (3.1-17.5) 08/20/19 13:30 COVID-19 (NICK) Detected (Not Detected) H 08/19/19 17:55 Microbiology 08/23/19 13:00 Abscess Gram Stain - Final 08/23/19 13:00 Abscess Wound Culture - Final Serratia Marcescens 08/19/19 18:00 Blood - Peripheral Venous Blood Culture - Final NO GROWTH AFTER 5 DAYS INCUBATION 08/19/19 17:49 Blood - Peripheral Venous Blood Culture - Final NO GROWTH AFTER 5 DAYS INCUBATION 08/23/19 20:00 Stool Clostridioides difficile Antigen - Final 08/23/19 20:00 Stool Clostridioides difficile Toxin Assay - Final 08/19/19 17:56 Leg - Right Lower Gram Stain - Final 08/19/19 17:56 Leg - Right Lower Wound Culture - Final Serratia Marcescens Staphylococcus Coagulase Neg Problem List - Problems (1) Abscess of right lower extremity Code(s): L02.415 - CUTANEOUS ABSCESS OF RIGHT LOWER LIMB (2) Cellulitis Code(s): L03.90 - CELLULITIS, UNSPECIFIED (3) Leg wound, right Code(s): S81.801A - UNSPECIFIED OPEN WOUND, RIGHT LOWER LEG, INITIAL ENCOUNTER Assessment/Plan RLE cellulitis/wound infection RLE abscess RLE lymphedema Parkinson's COVID + / asymptomatic -- wound/abscess cultures noted -- RLE erythema improving, continue wound care -- on Zosyn, if continues to improve may switch to Levaquin unless contraindicated -- Diarrhea resolved
[2019-08-26] MEDS: ROPINIROLE HCL 6 MG PO SCH (20:50)
[2019-08-27] MEDS: PIPERACILLIN/TAZOB 3.375 GM 3.375 GM in DEXTROSE 5%-WATER - 50 ML IVPB SCH ×3 (01:54→17:24)
[2019-08-27] MEDS: CARBIDOP 25MG/LEVODOPA 100MG/ENTACAPONE 200MG TABLET PO SCH ×4 (08:27→20:17)
[2019-08-27] MEDS: LACTOBACILLUS ACIDOPHILUS 1 TABLET PO SCH ×2 (10:27→21:48)
[2019-08-27] MEDS: POTASSIUM CHLORIDE TABS 10 MEQ TABLET.ER (FP) PO SCH (10:28)
[2019-08-27] MEDS: ENOXAPARIN NA (PORCINE) 60 MG/0.6 ML DISP.SYRIN SQ SCH ×2 (10:29→21:48)
[2019-08-27] MEDS: ASPIRIN COATED 81 MG TABLET.EC PO SCH (10:29)
[2019-08-27] MEDS: FUROSEMIDE 20 MG TABLET (FP) PO SCH (10:29)
[2019-08-27] MEDS: CHOLESTYRAMINE/ASPARTAME 4 GM PACKET PO SCH ×2 (10:29→21:48)
[2019-08-27] MEDS: AMANTADINE HCL 100 MG TABLET PO SCH (10:30)
--- NOTE | 2019-08-27 17:06 | PN ---
Teaching Attending Note Name of Resident: Drake Chu ATTENDING PHYSICIAN STATEMENT I saw and evaluated the patient. I reviewed the resident's note and discussed the case with the resident. I agree with the resident's findings and plan as documented. SUBJECTIVE: Patient is comfortable with no acute distress. no new complains , no fever or chills. OBJECTIVE: Vital Signs Temperature 97.8 F 08/27/19 13:00 Pulse Rate 70 08/27/19 13:00 Respiratory Rate 20 08/27/19 13:00 Blood Pressure 105/50 L 08/27/19 13:00 O2 Sat by Pulse Oximetry (%) 97 08/26/19 21:00 PE:per resident's note CBCD WBC 4.4 K/mm3 (4.0-10.0) 08/26/19 07:45 RBC 3.69 M/mm3 (3.60-5.2) 08/26/19 07:45 Hgb 11.9 GM/dL (10.7-15.3) 08/26/19 07:45 Hct 35.6 % (32.4-45.2) 08/26/19 07:45 MCV 96.5 fl (80-96) H 08/26/19 07:45 MCHC 33.4 g/dl (32.0-36.0) 08/26/19 07:45 RDW 14.0 % (11.6-15.6) 08/26/19 07:45 Plt Count 177 K/MM3 (134-434) 08/26/19 07:45 MPV 8.4 fl (7.5-11.1) 08/26/19 07:45 CMP Sodium 145 mmol/L (136-145) 08/26/19 08:30 Potassium 3.6 mmol/L (3.5-5.1) 08/26/19 08:30 Chloride 118 mmol/L (98-107) H 08/26/19 08:30 Carbon Dioxide 25 mmol/L (21-32) 08/26/19 08:30 Anion Gap 1 MMOL/L (8-16) L 08/26/19 08:30 BUN 12.4 mg/dL (7-18) 08/26/19 08:30 Creatinine 0.8 mg/dL (0.55-1.3) 08/26/19 08:30 Random Glucose 99 mg/dL (74-106) 08/26/19 08:30 Calcium 8.7 mg/dL (8.5-10.1) 08/26/19 08:30 Total Bilirubin 1.0 mg/dl (0.2-1) 08/19/19 17:49 AST 16 U/L (15-37) 08/19/19 17:49 ALT 6 U/L (13-61) L 08/19/19 17:49 Alkaline Phosphatase 49 U/L (45-117) 08/19/19 17:49 Total Protein 5.7 g/dl (6.4-8.2) L 08/19/19 17:49 Albumin 3.6 g/dl (3.4-5.0) 08/19/19 17:49 Current Medications Generic Name Dose Route Start Last Admin Trade Name Freq PRN Reason Stop Dose Admin Acetaminophen 650 mg 08/22/19 15:18 Tylenol - PO Q4H PRN PAIN LEVEL 1 - 3 Amantadine HCl 100 mg 08/23/19 10:00 08/27/19 10:30 Symmetrel - PO 100 mg DAILY [facility] Administration Aspirin 81 mg 08/23/19 10:00 08/27/19 10:29 Ecotrin - PO 81 mg DAILY [facility] Administration Carbidopa/Levodopa/Entacapone 1 tab 08/22/19 16:00 08/27/19 12:20 Stalevo 100 - PO 1 tab 0800,1200,1600,2000 [facility] Administration Cholestyramine Resin 4 gm 08/25/19 12:33 08/27/19 10:29 Questran Light Packet - PO 4 gm BID [facility] Administration Enoxaparin Sodium 50 mg 08/24/19 22:00 08/27/19 10:29 Lovenox - SQ 50 mg BID [facility] Administration Furosemide 20 mg 08/23/19 10:00 08/27/19 10:29 Lasix - PO 20 mg DAILY [facility] Administration Piperacillin Sod/Tazobactam 50 mls @ 100 mls/hr 08/22/19 18:00 08/27/19 10:35 Sod 3.375 gm/ Dextrose IVPB 100 mls/hr Q8H-IV [facility] Administration Protocol Lactobacillus Acidophilus 1 tab 08/23/19 22:00 08/27/19 10:27 Bacid - PO 1 tab BID [facility] Administration Non-Formulary Medication 6 mg 06/30/20 20:00 08/26/19 20:50 Ropinirole Hcl [Requip Xl] PO 6 mg 2000 [facility] Administration Potassium Chloride 10 meq 08/23/19 10:00 08/27/19 10:28 K-Dur - PO 10 meq DAILY [facility] Administration Home Medications Medication Instructions Recorded Aspirin [Aspir 81] 81 mg PO DAILY 12/09/12 Calcium Carbonate [Tums Ultra] 400 mg PO HS 12/09/12 Ropinirole HCl [Requip Xl] 6 mg PO HS tablet 07/09/15 [id number] 1 each PO QID tablet 08/06/15 [Stalevo 100 -] Furosemide [Lasix] 20 mg PO DAILY 04/13/17 Amantadine HCl [Amantadine] 100 mg PO DAILY 10/22/18 Microbiology 08/23/19 13:00 Abscess Gram Stain - Final 08/23/19 13:00 Abscess Wound Culture - Final Serratia Marcescens 08/19/19 18:00 Blood - Peripheral Venous Blood Culture - Final NO GROWTH AFTER 5 DAYS INCUBATION 08/19/19 17:49 Blood - Peripheral Venous Blood Culture - Final NO GROWTH AFTER 5 DAYS INCUBATION 08/23/19 20:00 Stool Clostridioides difficile Antigen - Final 08/23/19 20:00 Stool Clostridioides difficile Toxin Assay - Final 08/19/19 17:56 Leg - Right Lower Gram Stain - Final 08/19/19 17:56 Leg - Right Lower Wound Culture - Final Serratia Marcescens Staphylococcus Coagulase Neg CT of lower extremity Ct with contrast: Extensive sq edema with poorly defined fluid collection anteriorly within the mid calf suspecious for a small abscess. ASSESSMENT AND PLAN: THis is a 78yof with Pmhx of Parkinson's disease and chronic right lower extremity lymphedema, admitted for RLE cellulitis. 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
--- NOTE | 2019-08-27 18:31 | PN ---
Progress Note, Physician History of Present Illness: Pt is alert , without distress. LE edema/erythema improving. - Current Medication List Current Medications: Active Medications Acetaminophen (Tylenol -) 650 mg PO Q4H PRN PRN Reason: PAIN LEVEL 1 - 3 Amantadine HCl (Symmetrel -) 100 mg PO DAILY [facility] Last Admin: 08/27/19 10:30 Dose: 100 mg Documented by: Aspirin (Ecotrin -) 81 mg PO DAILY [facility] Last Admin: 08/27/19 10:29 Dose: 81 mg Documented by: Carbidopa/Levodopa/Entacapone (Stalevo 100 -) 1 tab PO 0800,1200,1600,1999 [facility] Last Admin: 08/27/19 16:24 Dose: 1 tab Documented by: Cholestyramine Resin (Questran Light Packet -) 4 gm PO BID [facility] Last Admin: 08/27/19 10:29 Dose: 4 gm Documented by: Enoxaparin Sodium (Lovenox -) 50 mg SQ BID [facility] Last Admin: 08/27/19 10:29 Dose: 50 mg Documented by: Furosemide (Lasix -) 20 mg PO DAILY [facility] Last Admin: 08/27/19 10:29 Dose: 20 mg Documented by: Piperacillin Sod/Tazobactam (Sod 3.375 gm/ Dextrose) 50 mls @ 100 mls/hr IVPB Q8H-IV [facility]; Protocol Last Admin: 08/27/19 17:24 Dose: 100 mls/hr Documented by: Lactobacillus Acidophilus (Bacid -) 1 tab PO BID [facility] Last Admin: 08/27/19 10:27 Dose: 1 tab Documented by: Non-Formulary Medication (Ropinirole Hcl [Requip Xl]) 6 mg PO 1999 [facility] Last Admin: 08/26/19 20:50 Dose: 6 mg Documented by: Potassium Chloride (K-Dur -) 10 meq PO DAILY [facility] Last Admin: 08/27/19 10:28 Dose: 10 meq Documented by: - Objective Vital Signs: Vital Signs Temperature 97.8 F 08/27/19 13:00 Pulse Rate 70 08/27/19 13:00 Respiratory Rate 20 08/27/19 13:00 Blood Pressure 105/50 L 08/27/19 13:00 O2 Sat by Pulse Oximetry (%) 98 08/27/19 09:00 Constitutional: Yes: No Distress, Calm Cardiovascular: Yes: Regular Rate and Rhythm Respiratory: Yes: Regular Gastrointestinal: Yes: Normal Bowel Sounds, Soft Genitourinary: Yes: WNL Wound/Incision: Yes: Dressing Dry and Intact Neurological: Yes: Alert, Oriented Labs: CBC, BMP 08/26/19 07:45 08/26/19 08:30 INR, PTT INR 0.91 (0.83-1.09) 08/23/19 06:45 Laboratory Last Values WBC 4.4 K/mm3 (4.0-10.0) 08/26/19 07:45 RBC 3.69 M/mm3 (3.60-5.2) 08/26/19 07:45 Hgb 11.9 GM/dL (10.7-15.3) 08/26/19 07:45 Hct 35.6 % (32.4-45.2) 08/26/19 07:45 MCV 96.5 fl (80-96) H 08/26/19 07:45 MCH 32.3 pg (25.7-33.7) 08/26/19 07:45 MCHC 33.4 g/dl (32.0-36.0) 08/26/19 07:45 RDW 14.0 % (11.6-15.6) 08/26/19 07:45 Plt Count 177 K/MM3 (134-434) 08/26/19 07:45 MPV 8.4 fl (7.5-11.1) 08/26/19 07:45 Absolute Neuts (auto) 2.5 K/mm3 (1.5-8.0) 08/26/19 07:45 Neutrophils % 57.9 % (42.8-82.8) 08/26/19 07:45 Lymphocytes % 30.2 % (8-40) 08/26/19 07:45 Monocytes % 9.0 % (3.8-10.2) 08/26/19 07:45 Eosinophils % 2.1 % (0-4.5) 08/26/19 07:45 Basophils % 0.8 % (0-2.0) 08/26/19 07:45 Nucleated RBC % 0 % (0-0) 08/26/19 07:45 PT with INR 10.70 SEC (9.7-13.0) 08/23/19 06:45 INR 0.91 (0.83-1.09) 08/23/19 06:45 PTT (Actin FS) 28.5 SECONDS (25.2-36.5) 08/23/19 06:45 D-Dimer 1052 ng/ml (0-500) H 08/26/19 08:30 Sodium 145 mmol/L (136-145) 08/26/19 08:30 Potassium 3.6 mmol/L (3.5-5.1) 08/26/19 08:30 Chloride 118 mmol/L (98-107) H 08/26/19 08:30 Carbon Dioxide 25 mmol/L (21-32) 08/26/19 08:30 Anion Gap 1 MMOL/L (8-16) L 08/26/19 08:30 BUN 12.4 mg/dL (7-18) 08/26/19 08:30 Creatinine 0.8 mg/dL (0.55-1.3) 08/26/19 08:30 Est GFR (CKD-EPI)AfAm 81.84 08/26/19 08:30 Est GFR (CKD-EPI)NonAf 70.61 08/26/19 08:30 Random Glucose 99 mg/dL (74-106) 08/26/19 08:30 Calcium 8.7 mg/dL (8.5-10.1) 08/26/19 08:30 Phosphorus 2.5 mg/dL (2.5-4.9) 08/26/19 08:30 Magnesium 2.6 mg/dL (1.8-2.4) H 08/26/19 08:30 Iron 15 ug/dL (50-175) L 08/20/19 13:30 TIBC 301 ug/dL (250-450) 08/20/19 13:30 Iron Saturation 4 % (17.5-39) L 08/20/19 13:30 Unsaturated IBC 286 ug/dL (200-275) H 08/20/19 13:30 Ferritin 49.2 ng/ml (8-388) 08/26/19 08:30 Total Bilirubin 1.0 mg/dl (0.2-1) 08/19/19 17:49 AST 16 U/L (15-37) 08/19/19 17:49 ALT 6 U/L (13-61) L 08/19/19 17:49 Alkaline Phosphatase 49 U/L (45-117) 08/19/19 17:49 LD Total 201 U/L (84-246) 08/26/19 08:30 C-Reactive Protein 1.5 MG/DL (0.00-0.3) H 08/26/19 08:30 Total Protein 5.7 g/dl (6.4-8.2) L 08/19/19 17:49 Albumin 3.6 g/dl (3.4-5.0) 08/19/19 17:49 Vitamin B12 397 pg/ml (193-986) 08/20/19 13:30 Vitamin B12 Cancelled 08/20/19 13:30 Serum Folate 14 ng/mL (3.1-17.5) 08/20/19 13:30 COVID-19 (NICK) Detected (Not Detected) H 08/19/19 17:55 Microbiology 08/23/19 13:00 Abscess Gram Stain - Final 08/23/19 13:00 Abscess Wound Culture - Final Serratia Marcescens 08/19/19 18:00 Blood - Peripheral Venous Blood Culture - Final NO GROWTH AFTER 5 DAYS INCUBATION 08/19/19 17:49 Blood - Peripheral Venous Blood Culture - Final NO GROWTH AFTER 5 DAYS INCUBATION 08/23/19 20:00 Stool Clostridioides difficile Antigen - Final 08/23/19 20:00 Stool Clostridioides difficile Toxin Assay - Final 08/19/19 17:56 Leg - Right Lower Gram Stain - Final 08/19/19 17:56 Leg - Right Lower Wound Culture - Final Serratia Marcescens Staphylococcus Coagulase Neg Problem List - Problems (1) Abscess of right lower extremity Code(s): L02.415 - CUTANEOUS ABSCESS OF RIGHT LOWER LIMB (2) Cellulitis Code(s): L03.90 - CELLULITIS, UNSPECIFIED (3) Leg wound, right Code(s): S81.801A - UNSPECIFIED OPEN WOUND, RIGHT LOWER LEG, INITIAL ENCOUNTER Assessment/Plan RLE cellulitis/wound infection RLE abscess RLE lymphedema Parkinson's COVID + / asymptomatic -- RLE erythema improving, continue wound care -- switch to Levaquin po tomorrow x 1 week -- Diarrhea resolved
--- NOTE | 2019-08-27 18:52 | PN ---
Physical Exam: SUBJECTIVE: Patient seen and examined VALERIA Thinks RLE is less swollen, especially improved after keeping limb elevated. Denies F/C. OBJECTIVE: Vital Signs Period Temp Pulse Resp BP Sys/Dodson Pulse Ox Last 24 Hr 97.4 F-98.2 F 69-78 17-20 105-133/50-64 97-98 GENERAL: NAD. Pleasant HEAD: NC/AT EYES: sclera anicteric, conjunctiva clear and w/o pallor. ENT: moist mucous membranes. NECK: Trachea midline, full range of motion, supple. LUNGS: Breath sounds equal, clear to auscultation bilaterally, no wheezes, no crackles. No supplemental O2 HEART: Regular rate and rhythm, S1, S2 without murmur, rub or gallop. ABDOMEN: Soft, nontender, nondistended, no guarding, no rebound EXTREMITIES: RLE with anterior tibia eliptical surgical wound with serosanguinous drainage; skin edges are pink. No foul smell. Blanching hyperpigmentation of BLE. BL 1+ DP pulses NEUROLOGICAL: Normal speech, Active Medications Generic Name Dose Route Start Last Admin Trade Name Freq PRN Reason Stop Dose Admin Acetaminophen 650 mg 08/22/19 15:18 Tylenol - PO Q4H PRN PAIN LEVEL 1 - 3 Amantadine HCl 100 mg 08/23/19 10:00 08/27/19 10:30 Symmetrel - PO 100 mg DAILY [facility] Administration Aspirin 81 mg 08/23/19 10:00 08/27/19 10:29 Ecotrin - PO 81 mg DAILY [facility] Administration Carbidopa/Levodopa/Entacapone 1 tab 08/22/19 16:00 08/27/19 16:24 Stalevo 100 - PO 1 tab 0800,1200,1600,2000 [facility] Administration Cholestyramine Resin 4 gm 08/25/19 12:33 08/27/19 10:29 Questran Light Packet - PO 4 gm BID [facility] Administration Enoxaparin Sodium 50 mg 08/24/19 22:00 08/27/19 10:29 Lovenox - SQ 50 mg BID [facility] Administration Furosemide 20 mg 08/23/19 10:00 08/27/19 10:29 Lasix - PO 20 mg DAILY [facility] Administration Piperacillin Sod/Tazobactam 50 mls @ 100 mls/hr 08/22/19 18:00 08/27/19 17:24 Sod 3.375 gm/ Dextrose IVPB 100 mls/hr Q8H-IV [facility] Administration Protocol Lactobacillus Acidophilus 1 tab 08/23/19 22:00 08/27/19 10:27 Bacid - PO 1 tab BID [facility] Administration Non-Formulary Medication 6 mg 08/22/19 20:00 08/26/19 20:50 Ropinirole Hcl [Requip Xl] PO 6 mg 2000 [facility] Administration Potassium Chloride 10 meq 08/23/19 10:00 08/27/19 10:28 K-Dur - PO 10 meq DAILY [facility] Administration ASSESSMENT/PLAN: 78yF with PMH Parkinson's disease presented with Right leg erythema, swelling and drainage, was admitted with cellulites that previous failed PO antibiotic treatment. S/p I&D of RLE tibia wound. Cellulits likely in s/o venous stasis - Surgery performed I&D 08/22 >> cultures came back + for Serratia Marcescens & Coagulas negative staphylococci - wound care: saline irrigation with wet to dry dressing followed by keflex as per surgery's instructions - cont home lasix - abx regimen: --sp clindamycin 600 started 08/19 - d/c on 08/21 --Piperacillin Tazobactam 3.375 mg, on day 6 - ID consult(Gonzalo/Alisia): --switch to Levaquin PO(on 08/28/19) for 1wk Parkinson's disease - cont home meds Hospital Onset Diarrhea - C Diff negative - increased probiotics - continue to monitor electrolytes and patient for signs of dehydration or imbalance - encourage increase PO water intake - cholestyramine 4 gm po BID for diarrhea Covid-19 Positive (Asymptomatic) > COVID: (08/19/19, +); (08/26/19, pending) - monitor patient O2 sat regularly - inflammatory markers continuing to be monitored - trending down PPX - heparin 5000u SC increased to TID - no indication for GI PPX FEN - Enourages more PO intake - regular diet as tolerated - FALL RISK - needs assistance to get out of bed - continue PT(40ft, w/ RW) Dispo: This patient currently requires inpatient management of her condition. Visit type - Emergency Visit Emergency Visit: No - New Patient This patient is new to me today: Yes Date on this admission: 08/27/19 - Critical Care Critical Care patient: No ATTENDING PHYSICIAN STATEMENT I saw and evaluated the patient. I reviewed the resident's note and discussed the case with the resident. I agree with the resident's findings and plan as documented. SUBJECTIVE: OBJECTIVE: ASSESSMENT AND PLAN:
[2019-08-27] MEDS: ROPINIROLE HCL 6 MG PO SCH (20:17)
[2019-08-28] MEDS: PIPERACILLIN/TAZOB 3.375 GM 3.375 GM in DEXTROSE 5%-WATER - 50 ML IVPB SCH ×3 (01:46→17:47)
[2019-08-28] MEDS: ASPIRIN COATED 81 MG TABLET.EC PO SCH (08:59)
[2019-08-28] MEDS: ENOXAPARIN NA (PORCINE) 60 MG/0.6 ML DISP.SYRIN SQ SCH ×2 (09:00→21:11)
[2019-08-28] MEDS: CARBIDOP 25MG/LEVODOPA 100MG/ENTACAPONE 200MG TABLET PO SCH ×4 (09:00→20:43)
[2019-08-28] MEDS: LACTOBACILLUS ACIDOPHILUS 1 TABLET PO SCH ×2 (09:00→21:11)
[2019-08-28] MEDS: POTASSIUM CHLORIDE TABS 10 MEQ TABLET.ER (FP) PO SCH (09:00)
[2019-08-28] MEDS: CHOLESTYRAMINE/ASPARTAME 4 GM PACKET PO SCH ×2 (09:01→21:11)
[2019-08-28] MEDS: AMANTADINE HCL 100 MG TABLET PO SCH (09:01)
[2019-08-28 09:23] LABS: HEMOGLOBIN 11.5 GM/dL (10.7-15.3); MCH 32.2 pg (25.7-33.7); MCHC 33.7 g/dl (32.0-36.0); MEAN CELL VOLUME 95.3 fl (80-96); MEAN PLT VOLUME 8.3 fl (7.5-11.1); PLATELET COUNT 195 K/MM3 (134-434); RBC 3.57 M/mm3 (3.60-5.2); RDW 14.1 % (11.6-15.6); WHITE BLOOD COUNT 3.9 K/mm3 (4.0-10.0)
[2019-08-28 10:01] LABS: POTASSIUM 3.9 mmol/L (3.5-5.1)
--- NOTE | 2019-08-28 10:11 | PN ---
Teaching Attending Note Name of Resident: Autumn Hsieh ATTENDING PHYSICIAN STATEMENT I saw and evaluated the patient. I reviewed the resident's note and discussed the case with the resident. I agree with the resident's findings and plan as documented. SUBJECTIVE: Patient is comfortable with erika cute distress, no fever or chills. OBJECTIVE: Vital Signs Temperature 97.8 F 08/28/19 09:00 Pulse Rate 73 08/28/19 09:00 Respiratory Rate 18 08/28/19 09:00 Blood Pressure 94/47 L 08/28/19 09:00 O2 Sat by Pulse Oximetry (%) 98 08/27/19 21:00 PE: per resident's note PRE li: wound is clean . CBCD WBC 3.9 K/mm3 (4.0-10.0) L 08/28/19 08:00 RBC 3.57 M/mm3 (3.60-5.2) L 08/28/19 08:00 Hgb 11.5 GM/dL (10.7-15.3) 08/28/19 08:00 Hct 34.0 % (32.4-45.2) 08/28/19 08:00 MCV 95.3 fl (80-96) 08/28/19 08:00 MCHC 33.7 g/dl (32.0-36.0) 08/28/19 08:00 RDW 14.1 % (11.6-15.6) 08/28/19 08:00 Plt Count 195 K/MM3 (134-434) 08/28/19 08:00 MPV 8.3 fl (7.5-11.1) 08/28/19 08:00 CMP Sodium 141 mmol/L (136-145) 08/28/19 08:00 Potassium 3.9 mmol/L (3.5-5.1) 08/28/19 08:00 Chloride 116 mmol/L (98-107) H 08/28/19 08:00 Carbon Dioxide 25 mmol/L (21-32) 08/26/19 08:30 Anion Gap 1 MMOL/L (8-16) L 08/26/19 08:30 BUN 12.4 mg/dL (7-18) 08/26/19 08:30 Creatinine 0.8 mg/dL (0.55-1.3) 08/26/19 08:30 Random Glucose 99 mg/dL (74-106) 08/26/19 08:30 Calcium 8.7 mg/dL (8.5-10.1) 08/26/19 08:30 Total Bilirubin 1.0 mg/dl (0.2-1) 08/19/19 17:49 AST 16 U/L (15-37) 08/19/19 17:49 ALT 6 U/L (13-61) L 08/19/19 17:49 Alkaline Phosphatase 49 U/L (45-117) 08/19/19 17:49 Total Protein 5.7 g/dl (6.4-8.2) L 08/19/19 17:49 Albumin 3.6 g/dl (3.4-5.0) 08/19/19 17:49 Current Medications Generic Name Dose Route Start Last Admin Trade Name Freq PRN Reason Stop Dose Admin Acetaminophen 650 mg 08/22/19 15:18 Tylenol - PO Q4H PRN PAIN LEVEL 1 - 3 Amantadine HCl 100 mg 08/23/19 10:00 08/28/19 09:01 Symmetrel - PO 100 mg DAILY GEOVANI Administration Aspirin 81 mg 08/23/19 10:00 08/28/19 08:59 Ecotrin - PO 81 mg DAILY GEOVANI Administration Carbidopa/Levodopa/Entacapone 1 tab 08/22/19 16:00 08/28/19 09:00 Stalevo 100 - PO 1 tab 0800,1200,1600,2000 GEOVANI Administration Cholestyramine Resin 4 gm 08/25/19 12:33 08/28/19 09:01 Questran Light Packet - PO 4 gm BID GEOVANI Administration Enoxaparin Sodium 50 mg 08/24/19 22:00 08/28/19 09:00 Lovenox - SQ 50 mg BID GEOVANI Administration Furosemide 20 mg 08/23/19 10:00 08/27/19 10:29 Lasix - PO 20 mg DAILY GEOVANI Administration Piperacillin Sod/Tazobactam 50 mls @ 100 mls/hr 08/22/19 18:00 08/28/19 09:27 Sod 3.375 gm/ Dextrose IVPB 100 mls/hr Q8H-IV GE[facility]ANI Administration Protocol Lactobacillus Acidophilus 1 tab 08/23/19 22:00 08/28/19 09:00 Bacid - PO 1 tab BID GEOVANI Administration Non-Formulary Medication 6 mg 08/22/19 20:00 08/27/19 20:17 Ropinirole Hcl [Requip Xl] PO 6 mg 2000 GE[facility]ANI Administration Potassium Chloride 10 meq 08/23/19 10:00 08/28/19 09:00 K-Dur - PO 10 meq DAILY GEOVANI Administration Home Medications Medication Instructions Recorded Aspirin [Aspir 81] 81 mg PO DAILY 12/09/12 Calcium Carbonate [Tums Ultra] 400 mg PO HS 12/09/12 Ropinirole HCl [Requip Xl] 6 mg PO HS tablet 07/09/15 [id number] 1 each PO QID tablet 08/06/15 [Stalevo 100 -] Furosemide [Lasix] 20 mg PO DAILY 04/13/17 Amantadine HCl [Amantadine] 100 mg PO DAILY 10/22/18 Microbiology 08/23/19 13:00 Abscess Gram Stain - Final 08/23/19 13:00 Abscess Wound Culture - Final Serratia Marcescens 08/19/19 18:00 Blood - Peripheral Venous Blood Culture - Final NO GROWTH AFTER 5 DAYS INCUBATION 08/19/19 17:49 Blood - Peripheral Venous Blood Culture - Final NO GROWTH AFTER 5 DAYS INCUBATION 08/23/19 20:00 Stool Clostridioides difficile Antigen - Final 08/23/19 20:00 Stool Clostridioides difficile Toxin Assay - Final 08/19/19 17:56 Leg - Right Lower Gram Stain - Final 08/19/19 17:56 Leg - Right Lower Wound Culture - Final Serratia Marcescens Staphylococcus Coagulase Neg CT of lower extremity Ct with contrast: Extensive sq edema with poorly defined fluid collection anteriorly within the mid calf suspecious for a small abscess. ASSESSMENT AND PLAN: THis is a 78yof with Pmhx of Parkinson's disease and chronic right lower extremity lymphedema, admitted for RLE cellulitis. 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
[2019-08-28 10:17] LABS: CALCIUM 8.4 mg/dL (8.5-10.1); CREATININE 0.7 mg/dL (0.55-1.3); MAGNESIUM 2.5 mg/dL (1.8-2.4); PHOSPHOROUS 2.1 mg/dL (2.5-4.9)
[2019-08-28] MEDS: FUROSEMIDE 20 MG TABLET (FP) PO SCH (10:47)
--- NOTE | 2019-08-28 11:46 | PN ---
Progress Note, Physician History of Present Illness: stable swelling of the leg looks better dressing was changed pu still noticed in the wound - Current Medication List Current Medications: Active Medications Acetaminophen (Tylenol -) 650 mg PO Q4H PRN PRN Reason: PAIN LEVEL 1 - 3 Amantadine HCl (Symmetrel -) 100 mg PO DAILY [facility] Last Admin: 08/28/19 09:01 Dose: 100 mg Documented by: Aspirin (Ecotrin -) 81 mg PO DAILY [facility] Last Admin: 08/28/19 08:59 Dose: 81 mg Documented by: Carbidopa/Levodopa/Entacapone (Stalevo 100 -) 1 tab PO 0800,1200,1600,1999 [facility] Last Admin: 08/28/19 09:00 Dose: 1 tab Documented by: Cholestyramine Resin (Questran Light Packet -) 4 gm PO BID [facility] Last Admin: 08/28/19 09:01 Dose: 4 gm Documented by: Enoxaparin Sodium (Lovenox -) 50 mg SQ BID [facility] Last Admin: 08/28/19 09:00 Dose: 50 mg Documented by: Furosemide (Lasix -) 20 mg PO DAILY [facility] Last Admin: 08/28/19 10:47 Dose: Not Given Documented by: Piperacillin Sod/Tazobactam (Sod 3.375 gm/ Dextrose) 50 mls @ 100 mls/hr IVPB Q8H-IV [facility]; Protocol Last Admin: 08/28/19 09:27 Dose: 100 mls/hr Documented by: Lactobacillus Acidophilus (Bacid -) 1 tab PO BID [facility] Last Admin: 08/28/19 09:00 Dose: 1 tab Documented by: Non-Formulary Medication (Ropinirole Hcl [Requip Xl]) 6 mg PO 1999 [facility] Last Admin: 08/27/19 20:17 Dose: 6 mg Documented by: Potassium Chloride (K-Dur -) 10 meq PO DAILY [facility] Last Admin: 08/28/19 09:00 Dose: 10 meq Documented by: - Objective Vital Signs: Vital Signs Temperature 97.8 F 08/28/19 09:00 Pulse Rate 73 08/28/19 09:00 Respiratory Rate 18 08/28/19 09:00 Blood Pressure 94/47 L 08/28/19 09:00 O2 Sat by Pulse Oximetry (%) 98 08/28/19 09:00 Constitutional: Yes: No Distress, Calm Cardiovascular: Yes: S1, S2 Respiratory: Yes: Regular, CTA Bilaterally Gastrointestinal: Yes: Normal Bowel Sounds, Soft Musculoskeletal: Yes: WNL Extremities: Yes: Other Wound/Incision: Yes: Dressing Dry and Intact Neurological: Yes: Alert, Oriented Psychiatric: Yes: Alert, Oriented Labs: CBC, BMP 08/28/19 08:00 08/28/19 08:00 INR, PTT INR 0.91 (0.83-1.09) 08/23/19 06:45 Assessment/Plan Problem List - Problems (1) Abscess of right lower extremity Code(s): L02.415 - CUTANEOUS ABSCESS OF RIGHT LOWER LIMB (2) Cellulitis Code(s): L03.90 - CELLULITIS, UNSPECIFIED (3) Leg wound, right Code(s): S81.801A - UNSPECIFIED OPEN WOUND, RIGHT LOWER LEG, INITIAL ENCOUNTER Assessment/Plan RLE cellulitis/wound infection RLE abscess RLE lymphedema Parkinson's COVID + / asymptomatic surgery to evaluate the wound will d/w the team if surgery clears then can change to levaquin 500 mg po daily rest as per the team
--- NOTE | 2019-08-28 14:15 | PN ---
Progress Note (short form) - Note Progress Note: GEnERAL SURGERY Day #5 s/p bedside RLE I&D Doing well. Resting comfortably without complaint. AVSS. Afebrile. Gen: nad RLE: packing removed. much improvement. surrounding tissue less indurated. no periwound erythema. no purulence. not malodorous Problem List - Problems (1) Abscess of right lower extremity Assessment/Plan: Daily wound irrigation and packing as ordered cont medical management ID for ABX No further surgical input See DC PLAN tab for wound care instructions. Above plan discussed with Dr. Yen and agrees. Code(s): L02.415 - CUTANEOUS ABSCESS OF RIGHT LOWER LIMB
[2019-08-28 14:17] VITALS: BMI 24.0
[2019-08-28] MEDS ORDERED: NAPH,MB-DB/K PH,MBDB POWDER PACKET PO ONE (17:58)
--- NOTE | 2019-08-28 18:37 | DS ---
Physical Exam: SUBJECTIVE: Patient seen and examined OBJECTIVE: Vital Signs Period Temp Pulse Resp BP Sys/Dodson Pulse Ox Last 24 Hr 97.5 F-97.9 F 67-79 18-20 94-138/47-67 98-98 PHYSICAL EXAM GENERAL: NAD. Pleasant HEAD: NC/AT EYES: sclera anicteric, conjunctiva clear and w/o pallor. ENT: moist mucous membranes. NECK: Trachea midline, full range of motion, supple. LUNGS: Breath sounds equal, clear to auscultation bilaterally, no wheezes, no crackles. No supplemental O2 HEART: Regular rate and rhythm, S1, S2 without murmur, rub or gallop. ABDOMEN: Soft, nontender, nondistended, no guarding, no rebound EXTREMITIES: RLE with anterior tibia eliptical surgical wound with serosanguinou s drainage; skin edges are pink. No foul smell. Blanching hyperpigmentation of BLE. BL 1+ DP pulses NEUROLOGICAL: Normal speech, LABS Laboratory Results - last 24 hr 08/26/19 08/28/19 08/28/19 20:13 08:00 08:00 WBC 3.9 L RBC 3.57 L Hgb 11.5 Hct 34.0 MCV 95.3 MCH 32.2 MCHC 33.7 RDW 14.1 Plt Count 195 MPV 8.3 D-Dimer Sodium 141 Potassium 3.9 Chloride 116 H Carbon Dioxide 22 Anion Gap 4 L BUN 13.0 Creatinine 0.7 Est GFR (CKD-EPI)AfAm 96.18 Est GFR (CKD-EPI)NonAf 82.99 Random Glucose 86 Calcium 8.4 L Phosphorus 2.1 L Magnesium 2.5 H Ferritin 38.5 LD Total 199 C-Reactive Protein 0.6 H COVID-19 ([facility]ICK) Not detected 08/28/19 08:00 WBC RBC Hgb Hct MCV MCH MCHC RDW Plt Count MPV D-Dimer 991 H Sodium Potassium Chloride Carbon Dioxide Anion Gap BUN Creatinine Est GFR (CKD-EPI)AfAm Est GFR (CKD-EPI)NonAf Random Glucose Calcium Phosphorus Magnesium Ferritin LD Total C-Reactive Protein COVID-19 ([facility]ICK) HOSPITAL COURSE: Patient presented to the ED with 1 day of RLE erythema, swelling, and pain. She had previously completed a 10 day course of augmentin treatment for this wound infection without success. She was admitted to the hospital for treatment of RLE cellulites and an incision and drainage of the wound by surgery. Cultures from wound grew Serratia Marcescens & Coagulas negative staphylococci. Patient completed a course of IV Zoysn and is being discharged home oral Levaquin for 10 days. Needs to follow up with Dr. Donaldson for wound care. Patient also tested positive for Covid-19 on admission with no symptoms. Throughout her hospital stay, we tested her inflammatory markers which were elevated but continued to downtrend and she continued to be asymptomatic. Before discharge we repeated her Covid test and patient tested negative. Patient was given instructions for followup and what to do if her symptoms persist or get worse after leaving. Date of Admission:08/19/19 Date of Discharge: 08/28/19 Minutes to complete discharge: 30 Discharge Summary Problems reviewed: Yes Reason For Visit: CELLULITIS Current Active Problems Abscess of right lower extremity (Acute) Cellulitis (Acute) Leg wound, right (Acute) Condition: Stable - Instructions Diet, Activity, Other Instructions: Visit: You presented to the ER with right lower leg swelling, pain, and redness. Your wound had previously failed to heal after taking oral antibiotics. While in the hospital, the surgical team performed an incision and drainage of the wound. You also completed IV antibiotics for your infection. At the beginning of your stay, you experienced diarrhea, most likely due to your previous antibiotic treatment. Your stool was tested and negative for any bacterial causes of diarrhea. On arrival to the hospital you were tested for Covid-19 which came back positive. We monitored you for any symptoms of Covid -19 and you were kept in isolation. We also monitored markers in your blood to look for any inflammatory complication associated with the coronavirus illness. Before discharge, we retested your for Covid-19 and you tested negative. Continue to wear a mask and take precaution when leaving the hospital in order to protect yourself from Covid-19 exposure even though you've tested positive already. Medications: START taking Levaquin 500mg orally once a day for 7 days START taking Lactobacillus[BACID] twice a day for 7 days START taking Cholestyramine/aspartame[QUESTRAN] twice a day for 7 days START taking Apixaban[ELIQUIS] 2.5mg twice a day for 14 days Continue previously prescribed home medications Followup: Please see Dr. Donaldson the wound surgeon at his wound care clinic for follow up within 1-2 weeks: Please follow Dr. Yen's wound care instructions below. Follow up with your Primary Care Physician within 1-[address] Yen Discharge Instructions Post Operative Instructions Physical activity Resume your normal everyday activity as tolerated no heavy lifting or exercise until seen by your surgeon. You may walk unlimited amounts of and climb stairs. You may resume driving the car when you feel safe and comfortable behind the wheel. Wound care It's ok to shower and irrigate wound daily. Pack wound with moist 4x4, wrap with kerlix starting at toes and moving towards knee. Keep lower extremity elevated while in bed or seated in chair. Do not submerge legs in tub, pool, spa until seen by Dr. Yen. Diet There are no dietary restrictions. Eat healthy, high-fiber foods. Drink 6 to 8 glasses of liquid each day. This will assist in keeping your bowels are regular. Pain management You may take Tylenol or acetaminophen or Ibuprofen (for example, Motrin, Advil etc.) Any pain prescription medication ordered should be taken as prescribed for moderate to severe pain. Call Dr. Yen for any of the following: Severe pain not relieved by medication Fever of 101 or higher Excessive bleeding or drainage on dressing Inability to urinate Call the office at [phone] for a post operative appointment in 7 - 10 days. Referrals: Jamal Yen MD [Staff Physician] - 1 Week (wound care follow up ) Alex Sánchez MD [Staff Physician] - 1 Week Vipul Dowd MD [Staff Physician] - Craig Donaldson DO [Staff Physician] - 1 Week (follow with wound care clinic on a weekly basis please call to make an appointment ) Disposition: HOME - Home Medications Comprehensive Discharge Medication List: Ambulatory Orders Aspirin [Aspir 81] 81 mg PO DAILY 12/09/12 Ropinirole HCl [Requip Xl] 6 mg PO HS tablet 07/09/15 [id number] [Stalevo 100 -] 1 each PO QID tablet 08/06/15 Furosemide [Lasix] 20 mg PO DAILY 04/13/17 Amantadine HCl [Amantadine] 100 mg PO DAILY 10/22/18 Apixaban [Eliquis] 2.5 mg PO BID #28 tablet 08/28/19 Cholestyramine/Aspartame [Questran Light Packet -] 4 gm PO BID #14 packet 08/28/19 Lactobacillus Acidophilus [Bacid -] 1 each PO BID #14 capsule 08/28/19 Levofloxacin [Levaquin] 500 mg PO DAILY #7 tablet 08/28/19 This patient is new to me today: Yes Date on this admission: 08/24/19 Emergency Visit: Yes ED Registration Date: 08/19/19 Care time: The patient presented to the Emergency Department on the above date and was hospitalized for further evaluation of their emergent condition. Critical Care patient: No - Discharge Referral Referred to [facility] Med P.C.: No ATTENDING PHYSICIAN STATEMENT I saw and evaluated the patient. I reviewed the resident's note and discussed the case with the resident. I agree with the resident's findings and plan as documented. SUBJECTIVE: OBJECTIVE: ASSESSMENT AND PLAN:
[2019-08-28] MEDS: ROPINIROLE HCL 6 MG PO SCH (20:43)
[2019-08-28] MEDS: BANATROL PLUS POWDER PACKET PO SCH (21:11)
[2019-08-29] MEDS: PIPERACILLIN/TAZOB 3.375 GM 3.375 GM in DEXTROSE 5%-WATER - 50 ML IVPB SCH ×2 (01:34→11:25)
[2019-08-29] MEDS: CARBIDOP 25MG/LEVODOPA 100MG/ENTACAPONE 200MG TABLET PO SCH ×2 (09:20→12:00)
[2019-08-29] MEDS: LACTOBACILLUS ACIDOPHILUS 1 TABLET PO SCH (11:20)
[2019-08-29] MEDS: CHOLESTYRAMINE/ASPARTAME 4 GM PACKET PO SCH (11:20)
[2019-08-29] MEDS: ENOXAPARIN NA (PORCINE) 60 MG/0.6 ML DISP.SYRIN SQ SCH (11:20)
[2019-08-29] MEDS: ASPIRIN COATED 81 MG TABLET.EC PO SCH (11:20)
[2019-08-29] MEDS: FUROSEMIDE 20 MG TABLET (FP) PO SCH (11:21)
[2019-08-29] MEDS: POTASSIUM CHLORIDE TABS 10 MEQ TABLET.ER (FP) PO SCH (11:21)
[2019-08-29] MEDS: BANATROL PLUS POWDER PACKET PO SCH (11:21)
[2019-08-29] MEDS: AMANTADINE HCL 100 MG TABLET PO SCH (11:21)
--- NOTE | 2019-08-29 12:39 | PN ---
Progress Note, Physician - Current Medication List Current Medications: Active Medications Acetaminophen (Tylenol -) 650 mg PO Q4H PRN PRN Reason: PAIN LEVEL 1 - 3 Amantadine HCl (Symmetrel -) 100 mg PO DAILY [facility] Last Admin: 08/29/19 11:21 Dose: 100 mg Documented by: Aspirin (Ecotrin -) 81 mg PO DAILY [facility] Last Admin: 08/29/19 11:20 Dose: 81 mg Documented by: Banana Based Medical Food (Banatrol Plus Powder Packet) 1 packet PO BID [facility] Last Admin: 08/29/19 11:21 Dose: 1 packet Documented by: Carbidopa/Levodopa/Entacapone (Stalevo 100 -) 1 tab PO 0800,1200,1600,1999 [facility] Last Admin: 08/29/19 09:20 Dose: 1 tab Documented by: Cholestyramine Resin (Questran Light Packet -) 4 gm PO BID [facility] Last Admin: 08/29/19 11:20 Dose: 4 gm Documented by: Enoxaparin Sodium (Lovenox -) 50 mg SQ BID [facility] Last Admin: 08/29/19 11:20 Dose: 50 mg Documented by: Furosemide (Lasix -) 20 mg PO DAILY [facility] Last Admin: 08/29/19 11:21 Dose: 20 mg Documented by: Piperacillin Sod/Tazobactam (Sod 3.375 gm/ Dextrose) 50 mls @ 100 mls/hr IVPB Q8H-IV [facility]; Protocol Last Admin: 08/29/19 11:25 Dose: 100 mls/hr Documented by: Lactobacillus Acidophilus (Bacid -) 1 tab PO BID [facility] Last Admin: 08/29/19 11:20 Dose: 1 tab Documented by: Non-Formulary Medication (Ropinirole Hcl [Requip Xl]) 6 mg PO 1999 [facility] Last Admin: 08/28/19 20:43 Dose: 6 mg Documented by: Potassium Chloride (K-Dur -) 10 meq PO DAILY [facility] Last Admin: 08/29/19 11:21 Dose: 10 meq Documented by: - Objective Vital Signs: Vital Signs Temperature 98.4 F 08/29/19 06:00 Pulse Rate 67 08/29/19 06:00 Respiratory Rate 20 08/29/19 06:00 Blood Pressure 148/59 L 08/29/19 06:00 O2 Sat by Pulse Oximetry (%) 97 08/28/19 21:00 Labs: CBC, BMP 08/28/19 08:00 08/28/19 08:00 INR, PTT INR 0.91 (0.83-1.09) 08/23/19 06:45
--- NOTE | 2019-08-29 15:55 | PN ---
Teaching Attending Note Name of Resident: Drake Chu ATTENDING PHYSICIAN STATEMENT I saw and evaluated the patient. I reviewed the resident's note and discussed the case with the resident. I agree with the resident's findings and plan as documented. SUBJECTIVE: No fever or chills. no PADILLA . no pain , no events over night OBJECTIVE: NAD, R eye ptosis . CV: RRR Lungs: CTAB. Ext : R leg with anterior li wound ( 1 cm in diameter , with probably 4-5 mm in depth , clean base,. + surrounding hyperpigmentation , no erythema or increased warmth ASSESSMENT AND PLAN: 78 y/o lady with h/o Parkinson's disease , R eye trauma s/p prosthesis ,and chronic right lower extremity lymphedema, who has being treated for cellulitis 1- RLE cellulitis: d/w dr. Sánchez. levaquin x 7 days after dc cont wound packing after dc VNS after dc 2- COVID infection . repeat neg . increased dd gurmeet. cont eliquis x 14 days after dc dc home with VNS fro wound care and PT
[2019-08-29 17:49] VITALS: BP 141/60; PULSE 66; TEMP 98.2
--- NOTE | 2019-08-29 21:55 | PN ---
Physical Exam: SUBJECTIVE: Patient seen and examined bedside. In no acute distress. No events overnight. OBJECTIVE: Vital Signs 08/29/19 10:00 Temperature 98.2 F Pulse Rate 66 Respiratory 17 Rate Blood Pressure 141/60 O2 Sat by Pulse Oximetry (%) Physical Exam GENERAL: NAD. Pleasant EYES: sclera anicteric, conjunctiva clear and w/o pallor. ENT: moist mucous membranes. LUNGS: Breath sounds equal, clear to auscultation bilaterally, no wheezes, no crackles. No supplemental O2 HEART: Regular rate and rhythm, S1, S2 without murmur, rub or gallop. ABDOMEN: Soft, nontender, nondistended, no guarding, no rebound EXTREMITIES: RLE with anterior tibia eliptical surgical wound with serosanguinous drainage; skin edges are pink. No foul smell. Blanching hyperpigmentation of BLE. BL 1+ DP pulses NEUROLOGICAL: Normal speech ASSESSMENT/PLAN: 78yF with PMH Parkinson's disease presented with Right leg erythema, swelling and drainage, was admitted with cellulites that previous failed PO antibiotic treatment. S/p I&D of RLE tibia wound. Cellulits likely in s/o venous stasis - Surgery performed I&D 08/22 >> cultures came back + for Serratia Marcescens & Coagulas negative staphylococci --Piperacillin Tazobactam 3.375 mg - completed 7 days - ID consult(Gonzalo/Alisia): --switch to Levaquin PO(on 08/29/19) for 1wk Dispo: Patient was going to be discharged yesterday but there was difficulty setting up visiting home care for her wound. Patient is going home today on oral antibiotics and will follow up in wound clinic outpatient. Visit type - Emergency Visit Emergency Visit: Yes ED Registration Date: 08/19/19 Care time: The patient presented to the Emergency Department on the above date and was hospitalized for further evaluation of their emergent condition. - New Patient This patient is new to me today: No - Critical Care Critical Care patient: No - Discharge Referral Referred to [facility] Med [facility] Yes Physician Referral: Craig Donaldson DO ([facility]) ATTENDING PHYSICIAN STATEMENT I saw and evaluated the patient. I reviewed the resident's note and discussed the case with the resident. I agree with the resident's findings and plan as documented. SUBJECTIVE: OBJECTIVE: ASSESSMENT AND PLAN:
== END 2019-08-29 13:53 | disposition home or self-care (01) | DRG 602 ==
LOC: FER 17:25 → FM/S 17:49 → UNDOADMIN 17:49 → J6WEST-2 08-22 14:19
PROVIDERS: ADMIT Internal Medicine; ATTEND Internal Medicine
PROC: 0Y990ZZ Drainage of Right Lower Extremity, Open Approach (ICD-10-PCS; principal; 2019-08-23)
DX: L03.115 Cellulitis of right lower limb (principal); U07.1 COVID-19; L02.415 Cutaneous abscess of right lower limb; L53.9 Erythematous condition, unspecified; B95.8 Unspecified staphylococcus as the cause of diseases classified elsewhere; I89.0 Lymphedema, not elsewhere classified; I83.008 Varicose veins of unspecified lower extremity with ulcer other part of lower leg; R19.7 Diarrhea, unspecified; G20 Parkinson's disease; I87.8 Other specified disorders of veins; D64.9 Anemia, unspecified; Z97.0 Presence of artificial eye; Z91.81 History of falling
CPT/HCPCS: 36415; 71045-TC-FY; 73701-TC-RT; 80048; 80053; 82607; 82728; 82746; 83540; 83550; 83615; 83735; 84100; 85025; 85027; 85379; 85610; 85730; 86140; 87040; 87070; 87186; 87205; 87324; 87449; 93005; 93971-TC; 97116-GP; 97161-GP; 99285-25; J1644; Q9967; U0003

== ENCOUNTER 2020-01-21 17:25 | Emergency (ER) | payer OTHER, MEDICARE ==
[2020-01-21 17:38] VITALS: BP 138/65; PULSE 80; TEMP 97.9; BMI 25.8
== END 2020-01-21 19:39 | disposition home or self-care (01) ==
LOC: FER 17:25
DX: M79.605 Pain in left leg (principal)
CPT/HCPCS: 93971-TC; 99284-25

== ENCOUNTER 2020-01-31 18:51 | Emergency (ER) | payer OTHER, MEDICARE ==
[2020-01-31 19:11] VITALS: BP 170/70; PULSE 72; TEMP 98; BMI 25.8
[2020-01-31] MEDS ORDERED: ACETAMINOPHEN 1000 MG/100 ML VIAL (NON FORMULARY) IVPB ONE (20:13)
[2020-01-31] MEDS ORDERED: ACETAMINOPHEN INJECTION 100 ML IVPB ONE (20:46)
[2020-01-31 21:14] LABS: BASO % 0.9 % (0-2.0); EOS % 1.6 % (0-4.5); HEMATOCRIT 38.5 % (32.4-45.2); HEMOGLOBIN 12.7 GM/dl (10.7-15.3); LYMPH % 23.1 % (8-40); MCH 32.2 pg (25.7-33.7); MCHC 33.1 g/dl (32.0-36.0); MEAN CELL VOLUME 97.5 fl (80-96); MEAN PLT VOLUME 8.3 fl (7.5-11.1); MONO % 9.1 % (3.8-10.2); NEUT % 65.3 % (42.8-82.8); PLATELET COUNT 183 K/MM3 (134-434); RBC 3.95 M/mm3 (3.60-5.2); RDW 12.8 % (11.6-15.6); WHITE BLOOD COUNT 3.8 K/mm3 (4.0-10.8)
[2020-01-31 21:26] LABS: INR 1.02 (0.82-1.09); PROTHROMBIN TIME (PATIENT) 11.4 SEC (10.2-13.0)
[2020-01-31 21:31] LABS: ALBUMIN 4.1 g/dl (3.4-5.0); BILIRUBIN,TOTAL 0.8 mg/dl (0.2-1); CALCIUM 9.3 mg/dl (8.5-10); CREATININE 0.8 mg/dl (0.55-1.3); POTASSIUM 4.2 mmol/L (3.5-5.1); TOT PROT 6.5 g/dl (6.4-8.2)
[2020-01-31] MEDS ORDERED: KETOROLAC TROMETHAMINE 30 MG/1 ML VIAL IVPUSH ONE (22:04)
[2020-01-31] MEDS ORDERED: KETOROLAC TROMETHAMINE 15 MG/ML VIAL ONE (22:09)
[2020-02-01 00:48] LABS: IRON SERUM 57 ug/dL (50-175); TOTAL IRON BINDING CAPACITY 356 ug/dL (250-450)
== END 2020-01-31 23:55 | disposition home or self-care (01) ==
LOC: FER 18:51
PROC: 3E0333Z Introduction of Anti-inflammatory into Peripheral Vein, Percutaneous Approach (ICD-10-PCS; principal; 2020-01-31)
PROC: 3E0333Z Introduction of Anti-inflammatory into Peripheral Vein, Percutaneous Approach (ICD-10-PCS; 2020-01-31)
DX: M79.605 Pain in left leg (principal)
CPT/HCPCS: 36415; 73552-TC-LT-FY; 80053; 81003; 81015; 82728; 83540; 83550; 85025; 85610; 85651; 93971-TC; 99285-25; J0131

== ENCOUNTER 2020-04-25 17:10 | Emergency (ER) | payer OTHER, MEDICARE ==
[2020-04-25 17:24] VITALS: BP 131/60; PULSE 94; TEMP 99; BMI 25.8
[2020-04-25] MEDS ORDERED: CEPHALEXIN MONOHYDRATE 500 MG CAPSULE (UD) PO ONE (18:03)
[2020-04-25] MEDS ORDERED: CEPHALEXIN MONOHYDRATE 500 MG CAPSULE (UD) ONE (18:12)
[2020-04-25] MEDS ORDERED: ACETAMINOPHEN 500 MG TABLET (FP) PO ONE (18:16)
[2020-04-25] MEDS ORDERED: ACETAMINOPHEN 500 MG TABLET (FP) ONE (18:22)
== END 2020-04-25 21:07 | disposition home or self-care (01) ==
LOC: FER 17:10
DX: L03.116 Cellulitis of left lower limb (principal)
CPT/HCPCS: 93971-TC; 99284-25

== ENCOUNTER 2021-04-29 11:13 | Emergency (ER) | payer OTHER, MEDICARE ==
[2021-04-29] MEDS ORDERED: ACETAMINOPHEN 1000 MG/100 ML BAG IVPB ONE (11:27)
[2021-04-29 11:40] VITALS: BP 160/56; PULSE 66; TEMP 98.2; BMI 25.8
[2021-04-29] MEDS ORDERED: IBUPROFEN 600 MG TABLET (FP) PO ONE ×2 (11:40→11:43)
[2021-04-29] MEDS ORDERED: LIDOCAINE 5% TOPICAL PATCH TP ONE (13:38)
[2021-04-29] MEDS ORDERED: LIDOCAINE 5% TOPICAL PATCH ONE (14:15)
[2021-04-29] MEDS ORDERED: LIDOCAINE PATCH REMOVAL MC SCH (22:00)
== END 2021-04-29 14:36 | disposition home or self-care (01) ==
LOC: FER 11:13
PROC: 3E0333Z Introduction of Anti-inflammatory into Peripheral Vein, Percutaneous Approach (ICD-10-PCS; principal; 2021-04-29)
DX: S22.41XA Multiple fractures of ribs, right side, initial encounter for closed fracture (principal); W06.XXXA Fall from bed, initial encounter
CPT/HCPCS: 71101-TC-RT-FY; 73030-TC-RT-FY; 99285-25

== ENCOUNTER 2021-08-05 07:19 | Emergency (ER) | payer OTHER, MEDICARE ==
[2021-08-05 07:31] VITALS: TEMP 97.8; BMI 18.5
[2021-08-05] MEDS ORDERED: SODIUM CHLORIDE 0.9% 1000 ML INFUS.BAG IV ONE (07:40)
[2021-08-05 08:30] LABS: HEMATOCRIT 37.3 % (32.4-45.2); HEMOGLOBIN 13.4 G/dL (10.7-15.3); MCHC 35.8 g/dl (32.0-36.0); MEAN CELL VOLUME 92.2 fl (80-96); PLATELET COUNT 133.9 10^3/uL (134-434); RBC 4.05 10^6/uL (3.60-5.2); RDW 14.1 % (11.6-15.6); WHITE BLOOD COUNT 3.3 10^3/uL (4.0-10.8)
[2021-08-05 08:59] LABS: BILIRUBIN,TOTAL 0.8 mg/dl (0.2-1); CALCIUM 9.4 mg/dl (8.5-10); CREATININE 0.8 mg/dl (0.55-1.3); TOT PROT 6.1 g/dl (6.4-8.2)
[2021-08-05] MEDS ORDERED: KETOROLAC TROMETHAMINE 15 MG/ML VIAL IM ONE (09:50)
[2021-08-05] MEDS ORDERED: KETOROLAC TROMETHAMINE 15 MG/ML VIAL ONE (09:51)
[2021-08-05 10:48] VITALS: BP 140/70; PULSE 70
== END 2021-08-05 10:48 | disposition home or self-care (01) ==
LOC: FER 07:19 → SUPCPDRO 07:19 → FER 10:48
PROC: 3E0233Z Introduction of Anti-inflammatory into Muscle, Percutaneous Approach (ICD-10-PCS; principal; 2021-08-05)
DX: S09.90XA Unspecified injury of head, initial encounter (principal); W22.09XA Striking against other stationary object, initial encounter; Z86.69 Personal history of other diseases of the nervous system and sense organs
CPT/HCPCS: 36415; 70450-TC; 80053; 81003; 81015; 85025; 87086; 99284-25

== ENCOUNTER 2022-05-19 11:20 | Emergency (ER) | payer OTHER, MEDICARE ==
[2022-05-19 11:53] VITALS: BMI 25.2
[2022-05-19 13:00] LABS: HEMATOCRIT 41.4 % (32.4-45.2); HEMOGLOBIN 14.2 G/dL (10.7-15.3); MCH 31.2 pg (25.7-33.7); MCHC 34.3 g/dl (32.0-36.0); MEAN CELL VOLUME 90.8 fl (80-96); MEAN PLT VOLUME 8.6 fl (7.5-11.1); PLATELET COUNT 147.8 10^3/uL (134-434); RBC 4.56 10^6/uL (3.60-5.2); RDW 13.8 % (11.6-15.6); WHITE BLOOD COUNT 2.5 10^3/uL (4.0-10.8)
[2022-05-19 13:05] LABS: ALBUMIN 4.3 g/dl (3.4-5.0); BILIRUBIN,TOTAL 0.8 mg/dl (0.2-1); CALCIUM 9.5 mg/dl (8.5-10); CREATININE 0.6 mg/dl (0.55-1.3); TOT PROT 6.8 g/dl (6.4-8.2)
[2022-05-19] MEDS ORDERED: ACETAMINOPHEN 500 MG TABLET (FP) PO ONE (13:15)
[2022-05-19] MEDS ORDERED: ACETAMINOPHEN 500 MG TABLET (FP) ONE (13:16)
[2022-05-19 13:21] VITALS: BP 115/55; PULSE 66; RESP 18; TEMP 97.8
== END 2022-05-19 13:30 | disposition home or self-care (01) ==
LOC: FER 11:20
DX: R68.89 Other general symptoms and signs (principal); W07.XXXA Fall from chair, initial encounter
CPT/HCPCS: 36415; 80053; 81003; 81015; 85027; 87086; 99283-25

== ENCOUNTER 2023-04-01 10:51 | Emergency (ER) | payer OTHER, MEDICARE ==
[2023-04-01 11:17] VITALS: BP 168/61; PULSE 62; RESP 18; BMI 25.2
[2023-04-01] MEDS ORDERED: ACETAMINOPHEN 325 MG TABLET (FP) ONE (12:18)
[2023-04-01 12:23] LABS: HEMOGLOBIN 12.3 G/dL (10.7-15.3); MCH 31.7 pg (25.7-33.7); MCHC 34.2 g/dl (32.0-36.0); MEAN CELL VOLUME 92.6 fl (80-96); MEAN PLT VOLUME 8.6 fl (7.5-11.1); PLATELET COUNT 149.5 10^3/uL (134-434); RBC 3.89 10^6/uL (3.60-5.2); RDW 14.8 % (11.6-15.6); WHITE BLOOD COUNT 5.2 10^3/uL (4.0-10.8)
[2023-04-01] MEDS: ACETAMINOPHEN 325 MG TABLET (FP) PO ONE (12:31)
[2023-04-01 12:35] LABS: ALBUMIN 4.2 g/dl (3.4-5.0); BILIRUBIN,TOTAL 0.5 mg/dl (0.2-1); CALCIUM 9.7 mg/dl (8.5-10.1); CREATININE 0.8 mg/dl (0.6-1.3); POTASSIUM 3.8 mmol/L (3.5-5.1); TOT PROT 6.1 g/dl (6.4-8.2)
[2023-04-01 13:15] LABS: PLATELET ESTIMATE ADEQUATE
== END 2023-04-01 14:35 | disposition home or self-care (01) ==
LOC: FER 10:51
DX: S81.811A Laceration without foreign body, right lower leg, initial encounter (principal); S09.90XA Unspecified injury of head, initial encounter; M54.2 Cervicalgia; R51.9 Headache, unspecified; M25.552 Pain in left hip; W01.198A Fall on same level from slipping, tripping and stumbling with subsequent striking against other object, initial encounter; Y93.89 Activity, other specified; Y92.009 Unspecified place in unspecified non-institutional (private) residence as the place of occurrence of the external cause
CPT/HCPCS: 36415; 70450-TC; 71045-TC-FY; 72125-TC; 73502-TC-LT-FY; 80053; 81003; 84484; 85027; 87086; 93005; 99285-25

== ENCOUNTER 2023-08-07 10:03 | Emergency (ER) | payer OTHER, MEDICARE ==
[2023-08-07 10:09] VITALS: BP 161/73; PULSE 73; RESP 16; TEMP 97.6; BMI 25.4
[2023-08-07 10:51] LABS: INR 0.96 (0.83-1.09)
[2023-08-07 10:53] LABS: HEMATOCRIT 38.2 % (32.4-45.2); HEMOGLOBIN 12.6 G/dL (10.7-15.3); MCH 30.6 pg (25.7-33.7); MCHC 32.9 g/dl (32.0-36.0); MEAN PLT VOLUME 9.8 fl (7.5-11.1); PLATELET COUNT 136.2 10^3/uL (134-434); RBC 4.11 10^6/uL (3.60-5.2); RDW 13.8 % (11.6-15.6); WHITE BLOOD COUNT 3.1 10^3/uL (4.0-10.8)
[2023-08-07 10:54] LABS: ACTIVATED PTT 23.3 SECONDS (25.2-36.5)
[2023-08-07 11:00] LABS: ALBUMIN 4.2 g/dl (3.4-5.0); BILIRUBIN,TOTAL 0.6 mg/dl (0.2-1); CALCIUM 9.9 mg/dl (8.5-10.1); CREATININE 0.8 mg/dl (0.6-1.3); MAGNESIUM 1.9 mg/dL (1.8-2.4); POTASSIUM 4.2 mmol/L (3.5-5.1); TOT PROT 6.1 g/dl (6.4-8.2)
[2023-08-07 11:02] LABS: PLATELET ESTIMATE ADEQUATE
[2023-08-07 12:38] LABS: N-TERMINAL BNP 268.2 pg/ml (5-450)
== END 2023-08-07 14:32 | disposition home or self-care (01) ==
LOC: FER 10:03
DX: M79.621 Pain in right upper arm (principal); M79.622 Pain in left upper arm; R29.6 Repeated falls; Z20.822 Contact with and (suspected) exposure to COVID-19
CPT/HCPCS: 0241U-QW; 36415; 70450-TC; 71045-TC-FY; 72125-TC; 72170-TC-FY; 73030-TC-LT-FY; 73030-TC-RT-FY; 73060-TC-LT-FY; 80053; 81003; 82962; 83735; 83880; 84439; 84443; 84484; 85027; 85610; 85730; 87086; 93005; 99285-25